=== PATIENT | male | born 1945 | race Caucasian/White ===

== ENCOUNTER 2016-08-13 17:12 | Inpatient (IN) | payer MEDICARE ==
[2016-08-13] VITALS (10 sets, daily range): BP systolic 125–155; BP diastolic 83–102; BMI 37.3
[~2016-08-13] VITALS: Ht 175.3 cm; Wt 115.0 kg
--- NOTE | ~2016-08-13 | HEMODYNAMI ---
PATIENT:LUIS ALFREDO ESCOBAR MEDICAL RECORD: [id number] : 41 LOCATION:[facility] D230 ADMISSION DATE: 08/13/16 Generatedon:08/13/201620:27 Patient name: LUIS ALFREDO ESCOBAR Patient #: [id number] SSN: : 1945 Date of study: 08/13/2016 Page: Of Hemodynamic Procedure Report Patient Data Patient Demographics Procedure consent was obtained First Name: LUIS ALFREDO Gender: Male Last Name: SHAWN : 1945 [facility] Initial: G Age: 71 year(s) Patient #: [id number] Race: Unknown Additional ID: [id number] Contact details [address]: [address] [place] [address] State: [place] City: [place] Zip code: [address] Past Medical History Allergies: No known allergies Admission Admission Data Admission Date: 08/13/2016 Admission Time: 18:52 Room #: 2306 Height (in.): 69 BSA: 2.27 (m2) Height (cm.): 175.26 BMI: 36.92 (kg/m2) Weight (lbs.): 250 Weight (kg.): 113.4 Procedure Procedure Types Cath Procedure Diagnostic Procedure [facility] w/Coronaries PCI Procedure Coronary Stent Initial Miscellaneous Procedures Moderate Sedation up to 15 minutes Procedure Description Procedure Date Procedure Date: 08/13/2016 Procedure Start Time: 20:05 Procedure End Time: 20:25 Procedure Staff Name Function Haresh Witt MD Performing Physician Benjie Quinatna RT Scrub Tim Pinto RN Nurse Christa Fuentes RT Monitor Procedure Data Cath Procedure Fluoroscopy Diagnostic fluoroscopy Total fluoroscopy Time: 3.6 time: 3.6 min min Diagnostic fluoroscopy Total fluoroscopy dose: dose: 1115 mGy 1115 mGy Contrast Material Contrast Material Type Amount (ml) Isovue 300 118 Entry Location Entry Primary Successful Side Size Upsize Upsize Entry Closure Succes sful Closure Location (Fr) 1 (Fr) 2 (Fr) Remarks Device Remarks Femoral Right 6 Fr Exoseal artery Short Estimated blood loss: 10 ml Diagnostic catheters Device Type Used For End Catheter Placement Cordis 5Fr Pigtail LV Angiography Catheter (MP) Cordis 5Fr JL 4.0 Left Coronary Catheter (MP) Angiography Cordis 5Fr 3DRC Catheter Right Coronary (MP) Angiography Procedure Complications No complications Procedure Medications Medication Administration Route Dosage Oxygen NC 2 l/min Heparin Flush Bag added to field 2 bags (1000units/500ml NS) 0.9% NaCl I.V. 100 ml/hr Fentanyl I.V. 50 mcg Versed I.V. 1 mg Lopressor I.V. 5 mg Fentanyl I.V. 50 mcg Versed I.V. 1 mg Heparin Bolus I.V. 4000 units Integrilin (Bolus I.V. 10.2 ml 2mg/ml) Dobutamine I.V. drip 5 mcg/kg/min (500mg/250ml D5W) Hemodynamics Rest BSA: 2.27 (m2) O2 Consumption: Estimated: 293.81 (ml/min) O2 Consumption indexed : Estimated:129.43 (ml/min/m) Heart Rate: 107 (bpm) Pressure Samples Time Site Value (mmHg) Purpose Heart Use Rate(bpm) 20:07 LV 120/20,25 Snapshot 96 20:08 AO 119/83(100) Snapshot 91 Snapshots Pre Cath Intra NCS Post Cath Vital Signs Time Heart Resp SPO2 etCO2 [id number] NIBP (mmHg) Rhythm Pain Sedatio n Rate (ipm) (%) (mmHg) (mmHg) Status Level (bpm) 19:59:54 108 17 96 0 0 145/105(125) NSR 0 (11) 10(A) , No pain 20:04:14 110 18 93 0 0 147/105(120) NSR 0 (11) 10(A) , No pain 20:08:32 90 17 93 0 0 129/93(114) NSR 0 (11) 9(A) , No pain 20:12:48 90 20 93 0 0 135/89(117) NSR 0 (11) 9(A) , No pain 20:17:02 93 17 95 0 0 140/92(120) NSR 0 (11) 9(A) , No pain 20:21:20 92 17 93 0 0 141/93(123) NSR 0 (11) 9(A) , No pain Medications Time Medication Route Dose Verified Delivered Reason N otes Effectiveness by by 20:00:14 Oxygen NC 2 l/min Tim Tim Per physician Blair Pinto RN RN 20:00:37 Heparin Flush added 2 bags Tim Tim used for Bag to Blair Pinto RN procedure (1000units/500ml field RN NS) 20:00:49 0.9% NaCl I.V. 100 ml/hr Tim Tim Per physician Blair Pinto RN RN 20:05:16 Fentanyl I.V. 50 mcg Tim Tim for sedation Blair Pinto RN RN 20:05:23 Versed I.V. 1 mg Tim Tim for sedation Blair Pinto RN RN 20:06:12 Lopressor I.V. 5 mg Tim Tim Per physician Blair Pinto RN RN 20:07:23 Fentanyl I.V. 50 mcg Tim Tim for sedation Blair Pinto RN RN 20:07:27 Versed I.V. 1 mg Tim Tim for sedation Blair Pinto RN RN 20:12:39 Heparin Bolus I.V. 4000 units Tim Tim for Blair Pinto RN anticoagulation RN 20:13:55 Integrilin I.V. 10.2 ml Tim Marreroy for (Bolus 2mg/ml) Blair Pinto RN antiplatelet RN therapy 20:16:15 Dobutamine I.V. 5 Tim Tim Per physician (500mg/250ml drip mcg/kg/min Blair iPnto RN D5W) heart surgeon Log Time Note 19:40:55 Tim Pinto RN sent for patient. Start room use. 19:48:56 Time tracking: Call back 19:51:52 Plan of Care:Hemodynamics will remain stable., Cardiac rhythm will remain stable., Comfort level will be maintained., Respiratory function will remain adequate., Patient/ family verbilizes understanding of procedure., Procedure tolerated without complication., Recovers from procedure without complications.. 19:52:50 Patient received from ED to CCL 1 Alert and oriented. Tansferred to table in Supine position. 19:52:51 Warm blankets applied, and abby hugger turned on for patient comfort. 19:52:51 Correct patient and procedure confirmed by team. 19::52 Signed procedure consent form obtained from patient. 19:52:53 ECG and BP/O2 sat monitors applied to patient. 19:52:54 Full Disclosure recording started 19:58:34 Vital chart was started 19:58:38 Rhythm: sinus rhythm 19:59:39 H&P Date Dictated: 08/13/2016 Emergent; H&P N/A. 19:59:40 Pre-procedure instructions explained to patient. 19:59:41 Pre-op teaching completed and patient verbalized understanding. 19:59:42 Family in waiting room. 19:59:44 Patient NPO since Midnight. 19:59:53 Patient allergic to No known allergies 19:59:56 Is the patient allergic to Iodine/contrast media? No. 20:00:14 Oxygen 2 l/min NC was administered by Tim Pinto RN; Per physician; 20:00:37 Heparin Flush Bag (1000units/500ml NS) 2 bags added to field was administered by Tim Pinto RN; used for procedure; 20:00:49 0.9% NaCl 100 ml/hr I.V. was administered by Tim Pinto RN; Per physician; 20:01:06 Is patient on blood thinner?No 20:01:12 Patient diabetic? No. 20:01:15 Previous problem with sedation/anesthesia? No ? 20:01:16 Snore? Yes 20:01:17 Sleep apnea? No 20:01:18 Deviated septum? No 20:01:18 Opens mouth fully? Yes 20:01:19 Sticks out tongue? Yes 20:01:21 Airway obstruction? No ? 20:01:23 Dentures? No ? 20:01:26 Pre procedure: right dorsailis pedis pulse 2+ Normal; easily identifiable; not easily obliterated 20:01:28 Patient pain scale 0/10 ?. 20:01:34 IV patent on arrival in left forearm with 0.9% NaCl at [facility]. 20:01:39 Lab results completed and on chart. 20:01:42 Right groin area was prepped with chlora-prep and draped in sterile fashion 20:01:43 Alarms reviewed by R. N. 20:01:44 Sharps counted by scrub and verified by R.N. 20:02:02 Use device set Femoral Dx 20:02:04 Acist Syringe opened to sterile field. 20:02:04 Bag Decanter opened to sterile field. 20:02:05 Medline Cath Pack opened to sterile field. 20:02:06 St Laureano 260cm J .035 wire opened to sterile field. 20:02:07 Acist Hand Control opened to sterile field. 20:02:08 Acist Manifold opened to sterile field. 20:02:08 Diagnostic Infinity 5Fr Multipack catheter opened to sterile field. 20:02:09 Tegaderm 4 x 4 opened to sterile field. 20:02:25 Baseline sample Acquired. 20:03:04 Final Timeout: patient, procedure, and site verified with staff and physician. All members of the team are in agreement. 20:03:06 Right groin site verified by team. 20:03:09 Physical assessment completed. ASA score P 2 - A patient with mild systemic disease as per Haresh Witt MD. 20:03:25 Sedation plan: IV Moderate Sedation Versed, Fentanyl 20:05:02 Zero performed for pressure channel P1 20:05:06 Zero performed for pressure channel P1 20:05:15 Procedure started. 20:05:16 Fentanyl 50 mcg I.V. was administered by Tim Pinto RN; for sedation; 20:05:18 Local anesthetic to right femoral artery with Lidocaine 2% by Haresh Witt MD.INITIAL ACCESS ONLY 20:05:23 Versed 1 mg I.V. was administered by Tim Pinto RN; for sedation; 20:06:12 Lopressor 5 mg I.V. was administered by Tim Pinto RN; Per physician; 20:06:13 A 6 Fr Short sheath was inserted into the Right Femoral artery 20:06:40 A Cordis 5Fr Pigtail Catheter (MP) was advanced over the wire and used for LV Angiography. 20:06:52 Merit BasixCompak Inflation Kit opened to sterile field. 20:06:52 Terumo 6Fr [place] Sheath opened to sterile field. 20:06:57 Gavin Whisper J 300cm 0.014 guide wire opened to sterile field. 20:07:23 Fentanyl 50 mcg I.V. was administered by Tim Pinto RN; for sedation; 20:07:24 LV gram done using HAYNES 20:07:26 LV hemodynamics recorded. 20:07:27 Versed 1 mg I.V. was administered by Tim Pinto RN; for sedation; 20:07:30 Injector settings: Ml/sec: 10, Volume: 20, 20:07:34 EF : 20 % 20:07:37 Catheter removed. 20:07:53 A Cordis 5Fr JL 4.0 Catheter (MP) was advanced over the wire and used for Left Coronary Angiography. 20:09:19 Catheter removed. 20:09:53 A Cordis 5Fr 3DRC Catheter (MP) was advanced over the wire and used for Right Coronary Angiography. 20:10:43 Catheter removed. 20:12:27 Patient Weight : 250 kg 20:12:29 Patient Height : 69 cm 20:12:37 Medtronic Launcher 6Fr 3DRC guide catheter opened to sterile field. 20:12:39 Heparin Bolus 4000 units I.V. was administered by Tim Pinto RN; for anticoagulation; 20:13:30 6 Fr 3DRC guide catheter was inserted over the wire 20:13:36 Whisper wire advanced. 20:13:55 Integrilin (Bolus 2mg/ml) 10.2 ml I.V. was administered by Tim Pinto RN; for antiplatelet therapy; 20:15:31 Inflation Number: 1 A Medtronic Integrity 3.5 X 22 stent was prepped and advanced across the Mid RCA. The stent was deployed at 11 STEPHANY for 0:09 (min:sec). 20:15:52 Inflation number: 2 The stent balloon was then re-inflated across the Mid RCA to 13 STEPHANY for 0:10 (min:sec). 20:16:15 Dobutamine (500mg/250ml D5W) 5 mcg/kg/min I.V. drip was administered by Tim Pinto RN; Per physician; 20:16:30 Stent catheter was removed intact over wire. 20:16:30 Wire removed. 20:16:31 Guide catheter removed. 20:16:40 Sheath removed intact; hemostasis achieved with Exoseal to the Right Femoral artery. 20:16:42 Procedure ended.(Physican Out) 20:16:53 Cordis 6Fr Exoseal opened to sterile field. 20:17:32 Fluoroscopy time 03.60 minutes. 20:17:36 Fluoroscopy dose: 1115 mGy 20:17:36 Flurop Dose total: 1115 20:17:39 Contrast amount:Isovue 300 118ml. 20:17:40 Sharps counted by scrub and verified by R.N. 20:17:42 Insertion/operative site no bleeding no hematoma. 20:17:45 Post-op/insertion site Right Femoral artery dressed using a 4 x 4 and Tegaderm. 20:17:48 Post right femoral artery:stable, clean and dry 20:17:50 Post Procedure Pulses reassessed and unchanged 20:17:53 Post-procedure physical assessment completed. ASA score P 2 - A patient with mild systemic disease as per Haresh Witt MD. 20:17:56 Post procedure rhythm: sinus rhythm 20:17:59 Estimated blood loss: 10 ml 20:18:07 Post procedure instruction explained to patient.Patient verbalizes understanding. 20:18:08 Patient needs reinforcement of post procedure teaching. 20:18:22 Procedure type changed to Cath procedure, Diagnostic procedure, LHC, LHC w/Coronaries, PCI procedure, Coronary Stent Initial, Miscellaneous Procedures, Moderate Sedation up to 15 minutes 20:18:28 Procedure Complication : No complications 20:18:30 See physician's report for complete and final results. 20:19:56 Procedure and supply charges have been captured, reviewed, submitted and are correct. 20:24:58 Vital chart was stopped 20:25:02 Report given to ICU. 20:25:06 Patient transfered to ICU with Bed. 20:25:08 Procedure ended. 20:25:08 Full Disclosure recording stopped 20:25:20 End room use (Document Last) Intervention Summary Intervention Notes Time ActionType Lesion and Equipment Action# Pressure Duration Attributes Used 20:15:31 Place stent Mid RCA Medtronic 1 11 00:09 Integrity 3.5 X 22 stent 20:15:52 Reinflate Mid RCA Medtronic 2 13 00:10 stent Integrity balloon 3.5 X 22 stent Device Usage Item Name Manufacture Quantity Catalog Hospital Part Current Minimal L ot# / Number Charge Number Stock Stock Serial# Code Acist Acist 1 08722 302288 152141 987805 20 Syringe Medical Systems Inc Bag Microtek 1 2001S 688459 17428 511819 5 M[employer]. Medline Cardinal 1 [id number] 418253 59540 206514 5 Sahale Snacks [facility] Laureano 1 308606 188129 622083 046002 30 260cm J .035 wire Acist Hand Acist 1 71776 107987 521379 268934 5 [employer] Inc Acist Acist 1 67645 922211 788402 542296 5 Mobento Systems Inc Diagnostic Cardinal 1 [id number] 251959 87696 694105 30 Infinity Health 5Fr Multipack catheter Tegaderm 4 3M 1 1626W 249966 309437 614409 5 x 4 Cordis 5Fr Cardinal 1 705661 5 Pigtail Health Catheter (MP) [facility] 1 [id number] 871251 167520 518897 15 BasixPeridrome CorporationkstwtMob Medical Inflation Kit Terumo 6Fr Terumo 1 EST227 133764 082685 083511 40 [place] Sheath Gavin Gavin 1 [id number] 374751 966992 836301 5 Whisper J Vascular 300cm 0.014 guide wire Cordis 5Fr Cardinal 1 380492 5 JL 4.0 Health Catheter (MP) Cordis 5Fr Cardinal 1 064090 5 3DRC Health Catheter (MP) Medtronic Medtronic 1 [id number] 879146 821407 950002 1 Launcher 6Fr 3DRC guide catheter Medtronic Medtronic 1 [id number] 097429 010597 1 0 [id number] Integrity 3.5 X 22 stent Cordis 6Fr Cardinal 1 EX600 708513 244870 797585 10 Re2you Signature Audit [place] Stage Time Signature Unsigned Intra-Procedure 08/13/2016 Christa 8:26:58 PM Counts RT(R) Signatures Monitor : Christa Signature : Counts RT Date : Time : [address] [place] [address]
[~2016-08-13 17:12] MED LIST: ALTACE5 MG PO; ASPIRIN325 MG PO; COREG 3.1253.125 MG GT; COREG 3.1253.125 MG PO; IPRAT-ALBUT 0.5-3 ML PP; K-TAB10 MEQ PO; LASIX20 MG PO; LEVAQUIN750 MG PO; LIPITOR10 MG PO; MORPHINE; MUCINEX1200 MG/BO PO; MULTI-DAY VITAM1 TAB PO; MYLANTA LIQUID355 ML PO; NEURONTIN 300300 MG PO; NORCO 10/325 TA1 TA1 PO; PLAVIX75 MG PO; PRILOSEC20 MG PO; PROTONIX40 MG PO; ST JOSEPH ASPIR81 MG PO; ST. JOHN'S WOR300 MG PO; TYLENOL 8 HOUR650 MG PO; VITAMIN B COMPL1 TA1 PO; VITAMIN B-121000 MCG PO; VITAMIN C1000 MG PO
[2016-08-13 17:45] LABS: BASOPHILS 0.1 % (0-2); EOSINOPHILS 0 % (0-7); HEMATOCRIT 45.9 % (42.0-54.0); HEMOGLOBIN 15.7 g/dL (13.5-17.5); IMMATURE GRANULOCYTES 0.2 % (0-5); MCH 31.5 pg (26.0-34.0); MCHC 34.2 g/dL (31.0-37.0); MEAN PLATELET VOLUME 10.1 fL (7.4-10.4); MONOCYTES 8.5 % (2-11); NEUTROPHILS 76.2 % (40-80); PLATELET COUNT 243 10x3/uL (130-400); RBC 4.99 10x6/uL (4.20-6.10); RDW 12.9 % (11.5-14.5); WBC 13.3 10x3/uL (4.8-10.8)
[2016-08-13 18:01] LABS: ANION GAP 16.3 mmol/L (8-16); BILIRUBIN - TOTAL 0.71 mg/dL (0.2-1.3); CALCIUM 9.9 mg/dL (8.5-10.1); CARBON DIOXIDE 24.2 mmol/L (21.0-32.0); CREATININE - SERUM 1.2 mg/dL (0.6-1.3); POTASSIUM - SERUM 3.5 mmol/L (3.5-5.1); PROTEIN - SERUM 8.7 g/dL (6.4-8.2)
[2016-08-13 18:18] LABS: TROPONIN-I 3.14 ng/mL (0.000-0.060)
--- NOTE | 2016-08-13 20:50 | NUR ---
2049: Pt arrived from cardiac label maker via bed and placed in room 2306 x4 staff. All monitors established and alarms on.
--- NOTE | 2016-08-13 20:55 | NUR ---
2054: Pt resting flat in bed with eyes open. LOCx3 alert and oriented. Pt has no pain, but c/o nausea. No vomitting at this time. Pt denies tingling, numbness. Pt breathing 022LNC regular and even at this time. Pt states he was SOB earlier. MMP and no cyanosis noted. Lungs clear bilat with decreased bases with auscultation. S1S2 regular ST on CM. PPPX4=bilat. Left arm PIV with Dobutmaine and NS infusing. Right groin cdi with no s/s of hematoma seen. ABD soft NT BS x4 active. Pt request urinal frequently. SR up x2, Call light in reach. SCDs not placed at this time to assess PPP. Right Femoral Exoseal per Stem Lead Former.
--- NOTE | 2016-08-13 21:00 | NUR ---
2100: Pt at bedside. Update provided.
--- NOTE | 2016-08-13 22:00 | NUR ---
2200: Pt with frequent urination. Pt urinates approx 100cc with each void of clear straw colored urine. Assisted pt with urinal each time.
--- NOTE | 2016-08-13 23:00 | NUR ---
2300: Pt remains ST 100's on CM. Pt with no c/o chest pain, but states nausea and SOB continue. Pt remains on 022LNC with SPO2 97%. HOB at 30 degrees at this time.
[2016-08-14] VITALS (30 sets, daily range): BP systolic 69–147; BP diastolic 39–98; Ht 175.3 cm; Wt 115.0 kg
--- NOTE | 2016-08-14 00:15 | NUR ---
0000: Pt states; "I'm dying!" "You have let me just suffer." Pt denies anxiety or pain and states; "My breathing is worse than ever." Pt requested pain medicine, a breathing treatment, and water. Provided water. Morphine and Zofran admin at this time. No orders for Albuterol. Attempted to educate pt regarding ALbuterol, Cardiac Output, HR, but pt does not understand education. Pt ST 113 bpm at this time. Pt requested FIO2 be turned up to 4L. Pt SPO1 99% at this time. Pt FIO2 increased as per request. Explained 02 sat to pt who states; "People tell me that all the time, but I know I can't breath." All attempts to console patient unsuccessful. Pt repositioned as per request on Left side. Call light and Water at bedside and reachable. Pt cell phone at bedside as per request.
--- NOTE | 2016-08-14 01:45 | NUR ---
0145: Pt resting with eyes closed at this time. Pt remains SR on CM. No change in IVF/UOP. Pt remains on 024LNC with RR24x with SPO2 99%. Right groin with no s/s of hematoma noted.
--- NOTE | 2016-08-14 02:56 | NUR ---
0256: Pt resting with eyes closed. Open to verbal. Pt states he is still terrible and can't breathe. Pt remains on 024LNC with RR16x with SPO2 97%. No changes seen on CM and pt remains ST 110's. Provided water and assisted with urination. Pt remains on Dobutamine gtt as per orders.
--- NOTE | 2016-08-14 05:30 | NUR ---
0530: Pt resting with eyes closed upon entry to room pt opens eyes and states; "I am dying." Reassured pt. Pt states; "I can't beleive I just have to suffer like this." Asked pt to explain symptoms. Pt again states he can not breathe. Pt remains on 024LNC with SPO2 98% and RR18x, MMP and no cyanosis noted. Lungs unchanged from previous assessments. Assisted pt with urination. Pt urinated 200cc of clear yellow UOP. Pt remains ST 110's on CM. Right groin unchanged.
--- NOTE | 2016-08-14 06:15 | NUR ---
0615: at bedside. Update provided. Verbalized understanding.
--- NOTE | 2016-08-14 07:00 | NUR ---
PT ALERT AND ORIENTED, RESPIRATIONS EVEN AND UNLABORED O2 3L NC DENIES SOB, PIV TO LEFT ARM NS INFUSING, REPOSITIONED, BREAKFAST OFFERED, REFUSING AT THIS TIME, DENIES ALL NEEDS CALL LIGHT WITHIN REACH VSS WILL CONTINUE TO MONITOR
--- NOTE | 2016-08-14 09:00 | NUR ---
PT ALERT, VSS, DENIES ALL NEEDS, REPOSITONED WILL CONTINUE TO MONITOR
--- NOTE | 2016-08-14 11:00 | NUR ---
PT ALERT, RESPIRATIONS EVEN AND UNLABORED O2 3L NC, VSS, DENIES ALL NEEDS, WILL CONTIUE TO MONITOR
--- NOTE | 2016-08-14 11:13 | NUR ---
* Is the patient Alert and Oriented? Yes 0 * How many steps to enter\exit or inside your home? 0 0 * PCP Dr. Tee 0 * Pharmacy [facility] on [address] * Preadmission Environment Home with Family 0 * Equipment Nebulizer Oxygen 0 * List name and contact numbers for known caregivers / representatives who currently or will assist patient after discharge: Spouse - Shikha [phone] 0 * Additional services required to return to the preadmission environment? No 0 * Can the patient safely return to the preadmission environment? Yes 0 * Has this patient been hospitalized within the prior 30 days at any hospital? No 08/14/2016 11:13 DCP: Discharge Planning Patient Name: LUIS ALFREDO ESCOBAR Admission Status: ER Accout number: [id number] Admission Date: 08-13-2016 : 1945 Admission Diagnosis:UNSTABLE ANGINA Attending: PILI Current LOS: 1 Planned Disposition: Home Primary Insurance: MEDICARE A & B Discharge Planning Comments: CM met with patient to assess dc plans/needs. Patient states he lives with his , Shikha. He reports he is independent with all ADL's & IADL's. Denies having home health services or requiring assistive devices for assistance with mobility. He has home O2 @ 2L & a nebulizer. At dc, he will return home with his . CM will follow & assist as needed. Supervisor Asphalt Paving: Elizabeth Weber
--- NOTE | 2016-08-14 13:00 | NUR ---
PT ALERT AND ORIENTED, RESPIRATIONS EVEN AND UNLABORED, DENIES SOB, REPOSITIONS SELF WITH ENCOURAGEMENT, DENIES ALL NEEDS, CALL LIGHT WITHIN REACH, VSS, WILL CONTINUE TO MONITOR
--- NOTE | 2016-08-14 15:00 | NUR ---
PT ALERT AND ORIENTED, DENIES NEEDS, VSS, REPOSITIONS SELF, CALL LIGHT WITHIN REACH, WILL CONTINUE TO MONITOR
--- NOTE | 2016-08-14 17:00 | NUR ---
PT ALERT AND ORIENTED, DENIES SOB, RESPRIATIONS EVEN ANDUNLABORED, DENIES ALL NEEDS, REPOSITIONS SELF, WILL CONTINUE TO MONITOR
[2016-08-14] MEDS ORDERED: NEURONTIN 300300 MG PO (17:04)
--- NOTE | 2016-08-14 19:00 | NUR ---
PT AOX4, NO C/O PAIN AT THIS TIME. COOPERARTIVE. VSS, PERIPHERAL PULSES PRESENT. LUNG SOUNDS CLEAR, NC ON @ 2L, RESPIRATIONS UNLABORED. BOWEL SOUNDS ACTIVE IN ALL QUADS. RT GROIN SOFT WITH DSG CDI. PT REPOSITIONS SELF INDEPENDENTLY. DENIES FURTHER NEEDS AT THIS TIME. CALL LIGHT AND BEDSIDE TABLE WITHIN PT REACH. CPOC.
--- NOTE | 2016-08-14 21:20 | NUR ---
REC'D CALLBACK FROM BOBBI REGARDING HYPOTENSION, NEW ORDERS REC'D.
[2016-08-15] VITALS (21 sets, daily range): BP systolic 83–109; BP diastolic 42–71
--- NOTE | 2016-08-15 01:00 | NUR ---
PT RESTING QUIETLY WITH UNLABORED RESPIRATIONS. NO C/O PAIN, NO S/S OF DISTRESS AT THIS TIME. ALLOWED TO CONTINUE SLEEPING UNDISTUBED AT THIS TIME. CALL LIGHT AND BEDSIDE TABLE WITHIN PT REACH. ROOM VISIBLE FROM NURSES STATION. CPOC.
--- NOTE | 2016-08-15 03:00 | NUR ---
REASSESSMENT COMPLETE, SEE FLOWSHEET FOR ALL FINDINGS. PT RESTING QUIETLY WITH NO S/S OF DISTRESS. HYPOTENSIVE ON MONITOR, ASYMPTOMATIC. DENIES DIZZINESS, LIGHTHEADEDNESS, AND NAUSEA.HR 90'S. PT REPOSITIONED SELF INDEPENDENTLY. FRESH WATER TO BEDSIDE. DENIES FURTHER NEEDS AT THIS TIME. CALL LIGHT AND BEDSIDE TABLE WITHIN PT REACH. CPOC.
--- NOTE | 2016-08-15 17:45 | NUR ---
PT ARRIVED TO UNIT WITH AT SIDE. RR NONLABORED WITH NC @2L IN PLACE. PT IS A&O AND STATES HE IS FEELING PRETTY GOOD. VSS. PT HAS A L.THUMB AND L.AC PIV SL WITH SWAB CAPS IN USE AND DRSG CDI. PT ALSO HAS A L.HAND PIV WITH NS @75ML/HR INFUSING ALONG WITH A DOBUTAMINE DRIP @17ML/HR. PT DENIES ANY CURRENT PAIN OR NEEDS. CL IN REACH, BED IN LOWEST, SIDE RAILS X2. WILL CTM.
--- NOTE | 2016-08-15 19:33 | NUR ---
INITIAL ROUNDS COMPLETED. PT DENIES ANY DISCOMFORT. AT BEDSIDE. SR UP X2, CALL LIGHT WITHIN REACH.
--- NOTE | 2016-08-15 22:07 | NUR ---
ASSESSMENT COMPLETED AT 2000 HRS. VSS. SR PER CM HR 68. IV TO LFA WITH NS AT 75CC/HR AND DOBUTREX AT 5MCQ/KG/MIN (17CC/HR). IV PATENT. O2 2LNC. LUNGS DIMINISHED IN BASES BILAT. ALERT AND ORIENTED TO PERSON, PLACE AND TIME. IV TO L THUMB AND LAC SL. DRESSING TO R GROIN CLEAN, DRY AND INTACT. PALPABLE PERIPHERAL PULSES. PM MEDS GIVEN. PT CURRETNLY WATCHNG TV. AT BEDSIDE. SR UP X2, CALL LIGHT WITHIN REACH.
[2016-08-16] VITALS (7 sets, daily range): BP systolic 93–129; BP diastolic 38–58
--- NOTE | 2016-08-16 00:11 | NUR ---
PT AWAKE; DENIES ANY DISCOMFORT. WILL CONTINUE TO MONITOR.
--- NOTE | 2016-08-16 03:11 | NUR ---
PT RESTING WITH EYES CLOSED. RESP EVEN AND REGULAR. SR UP X2, CALL LIGHT WITHIN REACH.
--- NOTE | 2016-08-16 06:47 | NUR ---
VSS THROUGHOUT NIGHT. PT DENIED ANY DISCOMFORT. NEEDS MET; WILL CONTINUE TO MONITOR.
--- NOTE | 2016-08-16 08:34 | NUR ---
ASSESSMENT DONE. DENIES NEEDS,
[2016-08-16 09:00] LABS: ANION GAP 10.6 mmol/L (8-16); CALCIUM 8.2 mg/dL (8.5-10.1); CREATININE - SERUM 1.6 mg/dL (0.6-1.3)
[2016-08-16 09:02] LABS: POTASSIUM - SERUM 2.6 mmol/L (3.5-5.1)
--- NOTE | 2016-08-16 10:52 | NUR ---
RESP UL ON . IV PATENT. AT BS. WIIL CONT. PLAN OF CARE.
--- NOTE | 2016-08-16 17:19 | NUR ---
WITHOUT CHANGES OR DISTRESS NOTED AT THIS TIME. DENIES NEEDS.
--- NOTE | 2016-08-16 23:37 | NUR ---
INITIAL ROUNDS COMPLETED AT 1920 HRS. PT DENIED ANY DISCOMFORT. ASSESSMENT COMPLETED AT 2020 HRS. VSS. SR PER CM HR 65. IV TO LAC AND L THIMB SL. IV TO LFA WITH NS AT 75CC/HR AND DOBUTRX DRIP AT 3MCQ/KG/MIN ( 10.7CC/HR). O2 2LNC. LUNGS DIMINISHED IN BASES BILAT. TRACE PEDAL EDEMA. K+ 3.3. PT REFUSES LIQUID AND IV K+ AT THAT TIME. PM MEDS ROBERT. PT CURRENTLY WATCHING TV. AT BEDSIDE. WILL CONTINUE TO MONITOR. SR UP X2, CALL LIGHT WITHIN REACH. SCD'S PLACED BACK ON AT THIS TIME.
--- NOTE | 2016-08-17 02:09 | NUR ---
PT AWAKE; DENIES ANY DISCOMFORT. AT BEDSIDE AND SCD'S ON.
[2016-08-17 04:00] VITALS: BP 113/47
--- NOTE | 2016-08-17 04:34 | NUR ---
PT AWAKE; DENIES ANY DISCOMFORT. AT BEDSIDE. WILL CONTINUE TO MONITOR.
[2016-08-17 05:52] LABS: ANION GAP 8.8 mmol/L (8-16); CALCIUM 8.1 mg/dL (8.5-10.1); CARBON DIOXIDE 34.3 mmol/L (21.0-32.0); CREATININE - SERUM 1.3 mg/dL (0.6-1.3); POTASSIUM - SERUM 3.1 mmol/L (3.5-5.1)
[2016-08-17 08:57] VITALS: BP 128/59
--- NOTE | 2016-08-17 10:53 | NUR ---
ASSESSMENT COMPLETED. DENIES ANY NEEDS.TELEMERTY SHOWS SB AT 56. IV TO LEFT ARM WITH NS AT 75 AND DOBUTAMINE AT 10.7. EDEMA TO LEGS.LEFT AC SL. WILL MONITOR
--- NOTE | 2016-08-17 11:05 | NUR ---
AMBULATEING IN [address]. GAIT STEADY. WILL MONITOR
--- NOTE | 2016-08-17 11:10 | NUR ---
DOBUTAMINE GTT GOING AT 10.5. MONITOR SHOWS SR AT 73. UP WALKING HALLS BUT STILL CO SOB. O2 ON 3L. WILL CONTINUE TO MONITOR.
[2016-08-17 11:58] VITALS: BP 111/67
--- NOTE | 2016-08-17 13:50 | NUR ---
Nutrition follow-up: Diet: Low sodium PO intake 100% of most meals labs reviewed Wt: 253# RDN following.
--- NOTE | 2016-08-17 15:02 | OP ---
PATIENT NAME: LUIS ALFREDO ESCOBAR MEDICAL RECORD: [id number] :41 LOCATION:D.M2 D.2 ADMISSION DATE:08/13/16 SURGEON: MARLENE ELAINE MD DATE OF OPERATION: 08/13/2016 PROCEDURES: 1. PTCA stent RCA. 2. Left heart catheterization. 3. Selective coronary angiography. 4. Left ventriculogram. PROCEDURE IN DETAIL: After informed consent was obtained and after detailed explanation of risks, benefits as well as alternative therapies. The patient elected to proceed with angiogram and angioplasty. The right femoral area was prepped and draped in normal sterile fashion. The right femoral artery was cannulated via modified Seldinger technique with placement of 6-Arabic sheath. All catheters exchanged through this sheath. FINDINGS: The left ventriculogram was performed in the standard 30-degree HAYNES view reveals global hypokinesis throughout all segments. Overall ejection fraction is 20%. SELECTIVE CORONARY ANGIOGRAPHY: 1. Left main showed no significant angiographic disease. 2. Left anterior descending has mild irregularities, but no flow-limiting stenosis. Previously placed stents in the LAD and LAD diagonal are widely patent. 3. Left circumflex has moderate irregularities, but no flow-limiting stenosis. 4. The right coronary has previously placed stent proximally. This is patent; however, there is a new 70+ percent stenosis in the mid vessel. PTCA STENT OF THE RIGHT CORONARY: The stent used is a 3.5 x 22 mm Integrity. Result was 0% residual stenosis. OVERALL IMPRESSION: Successful percutaneous transluminal coronary angioplasty stent of the right coronary artery going from 70% initial stenosis to 0% residual. TRANSINT:[id number] Voice Confirmation ID: [id number] DOCUMENT ID: [id number] MARLENE ELAINE MD at 1502 CC: [id number] DICTATION DATE: 08/13/162021 POLYMERIZATION SUPERVISOR: 08/14/16 0153 ADM IN [facility] [address] [place] [address]
--- NOTE | 2016-08-17 15:02 | HP ---
PATIENT: LUIS ALFREDO ESCOBAR MEDICAL RECORD: [id number] ACCOUNT: [id number] LOCATION:[address] : 43 ADMISSION DATE: 08/13/16 HISTORY AND PHYSICAL EXAMINATION DATE OF SERVICE: 08/13/2016 DIAGNOSES: 1. Unstable angina. 2. Coronary artery disease. 3. Previous percutaneous transluminal coronary angioplasty stent. 4. Hypertension. 5. Cardiomyopathy. 6. Congestive heart failure. 7. Shortness of breath, dyspnea on exertion. 8. Hyperlipidemia. HISTORY OF PRESENT ILLNESS: This is a gentleman well known to us, previous PTCA stent in 2013, who presents with increasing angina as well as increasing shortness of breath and heart failure symptomatology. He has a known cardiomyopathy, ejection fraction in the 20-25% range. His has been holding his carvedilol secondary to low blood pressure. When he presented, he was initially short of breath with angina. He rapidly deteriorated to respiratory distress. Heart rate went up to the 120s with ST-T changes in the inferior leads with the tachycardia. He received IV Lopressor, 80 mg of Lasix, started having a diuresis, and became more stable from a respiratory standpoint. He has continued to have anginal symptomatology. REVIEW OF SYSTEMS: The patient reports easy bruising but reports no swollen glands. The patient reports no fever, no night sweats, no significant weight gain, no significant weight loss. No significant exercise tolerance. The patient reports no dry eyes, no irritation, no vision change. Patient reports no difficulty hearing and no ear pain. Patient reports no frequent nose bleeds or nose and sinus problems. Patient reports on arm pain on exertion. No shortness of breath while lying down. No history of heart murmur. Patient reports no cough, no wheezing or coughing up blood. Patient reports no abdominal pain, no vomiting. Normal appetite. No diarrhea and not vomiting blood. No nausea and no constipation. Patient reports no incontinence. No difficulty urinating. No hematuria. No increased frequency. Patient reports no muscle aches. No weakness, no arthralgias, no back pain. No swelling of the extremities. Patient reports no abnormal mole, no jaundice, no rashes. Reports no loss of consciousness. No weakness and no numbness. No seizures, dizziness, or headaches. The patient reports no depression, no sleep disturbance, feeling safe in a relationship and no alcohol abuse. Patient reports on fatigue. Reports no runny nose or sinus pressure. No itching, no hives, and no frequent sneezing. PHYSICAL EXAMINATION: GENERAL APPEARANCE: Well-nourished, well-developed, appears stated age. Level of distress, comfortable. PSYCHIATRIC: Mental status, alert, normal affect. Orientation, oriented to time, place and person. EYES: Lids and conjunctiva, noninjected. No discharge, no pallor. ENT: Lips, teeth, gums, normal dentition. Oropharynx, no cyanosis, no pallor. NECK: Carotid arteries, bilateral normal upstroke, no bruits, no thrills. HISTORY AND PHYSICAL [id number] LUIS ALFREDO ESCOBAR JUGULAR VEINS: No jugular venous pressure or distention. CERVICAL LYMPH NODES: Nontender, nonenlarged. THYROID: Not enlarged. Nontender. No nodules. LUNGS: Respiratory effort, unlabored. CHEST: Normal curvature. No thoracic deformity. No chest wall tenderness. Percussion, resonant. Auscultation, clear. No wheezes, no rales, no rhonchi. CARDIOVASCULAR: Precordial exam, nondisplaced. No heaves or pericardial thrills. Rate and rhythm, regular. Heart sounds, normal S1, normal S2. No S3, no gallop, no rub. Systolic murmur, not heard. Diastolic murmur, not heard. EXTREMITIES: No cyanosis, no edema. Peripheral pulses, full and equal in all extremities, except as noted. No bruits appreciated. ABDOMEN: Soft, nondistended. Normal aorta. No bruit. Nontender. No masses. Liver, nontender, no hepatomegaly. Spleen, nontender, no splenomegaly. MUSCULOSKELETAL: No joint tenderness. No joint swelling. No erythema. NEUROLOGICAL: Normal gait, normal strength, normal tone. SKIN: Warm and dry. OVERALL IMPRESSION: Unstable angina, shortness of breath, congestive heart failure, chronic systolic dysfunction, pulmonary edema. We will proceed with coronary angiography. Further care depends upon findings of the angiography. TRANSINT:[id number] Voice Confirmation ID: [id number] DOCUMENT ID: [id number] MARLENE ELAINE MD at 1502 CC: [id number] DICTATION DATE: 08/13/162019 DEALER CARD ROOM: 08/13/16 2307 ADM IN [facility] [address] [place] [address]
[2016-08-17 16:13] VITALS: BP 102/44
--- NOTE | 2016-08-17 19:00 | NUR ---
INITIAL ROUNDS MADE. PT SITTING UP IN BED WITH FAMILY IN ROOM. DENIES NEEDS OR C/O AT THIS TIME. CALL LIGHT IN REACH. WILL CONT TO MONITOR.
[2016-08-17 21:25] VITALS: BP 113/55
--- NOTE | 2016-08-18 00:37 | NUR ---
DIESEL ENGINE ERECTOR AT BEDSIDE FOR VS. NEEDS ADDRESSED AT THIS TIME. CALL LIGHT IN REACH. WILL CONT TO MONITOR.
[2016-08-18 01:00] VITALS: BP 113/68
--- NOTE | 2016-08-18 06:28 | NUR ---
SITTING UP ON SIDE OF BED WITH FAMILY IN ROOM. WATCHING TV, NO NEEDS OR C/O VOICED AT THIS TIME.
--- NOTE | 2016-08-18 07:15 | NUR ---
PT AAOX4 RESP UNLABORED DENIES ANY NEEDS OR DISCOMFORT AT THIS TIME
--- NOTE | 2016-08-18 07:45 | NUR ---
ASSESSMENT COMPLETED. TELEMERTY SHOW SR. O2 AT 2 LM PER NC. SCDS ON. DENIES ANY NEEDS. CALL LIGHT IN REACH. SR UP. FAMILY AT BEDSIDE. WILL MONITOR
[2016-08-18 07:54] VITALS: BP 109/58
[2016-08-18] MEDS ORDERED: LASIX40 MG PO ×2 (10:51→10:53)
[2016-08-18] MEDS ORDERED: POTASSIUM CHLO10 ME1 PO (10:51)
[2016-08-18] MEDS ORDERED: PLAVIX75 MG PO (10:52)
[2016-08-18] MEDS ORDERED: COREG6.25 MG PO (10:52)
--- NOTE | 2016-08-18 10:55 | NUR ---
LASIX 40 MG #60 1 TAB BID KCL (POTASSIUM CHLORIDE) 10 MEQ #30 1 TAB DAILY COREG 6.25 MG #60 1 TAB BID PLAVIX 75 MG #30 1 TAB DAILY ALL OF THESE MEDS HAVE 6 REFILLS AND CALLED TO [facility] PER PATIENT REQUEST. I TALKED TO BHARATH PHARMACIST.
[2016-08-18 11:50] VITALS: BP 111/59
--- NOTE | 2016-08-18 11:56 | NUR ---
Patient Name: LUIS ALFREDO ESCOBAR Encounter No: [id number] : 1945 Primary Insurance: MEDICARE A & B Anticipated DC Date: 08-18-2016 Planned Disposition: Home DCP follow-up note: CM MET WITH PT AND SPOUSE IN ROOM TO DISCUSS DISCHARGE NEEDS AND PLANNING. CM DISCUSSED AVAILABILITY OF HOME HEALTH, REHAB SERVICES AND MEDICAL EQUIPMENT. PT DENIES DISCHARGE NEEDS. SPOUSE TO TRANSPORT HOME AT DISCHARGE. IMPORTANT MESSAGE FROM MEDICARE PROVIDED AND EXPLAINED. Constantine Doan, CASE MANAGEMENT
--- NOTE | 2016-08-18 14:22 | NUR ---
PT DISCHARGED. IVS DCD WITH TIP INTACT. INSTRUCTION GIVEN TO PT AND . TO PRIVATE CAR PER WHEELCHAIR
== END 2016-08-18 14:24 | disposition home or self-care (01) | DRG 248 ==
LOC: D.ER 17:12 → D.ICU 18:52 → D.M2 18:58 → OBSVTIME 18:58 → D.ER 18:58 → D.ICU 23:39 → D.M2 08-15 18:02
PROVIDERS: Emergency Medicine; Family Medicine; Internal Medicine Cardiovascular Disease; ADMIT Internal Medicine Interventional Cardiology
PROC: B2111ZZ Fluoroscopy of Multiple Coronary Arteries using Low Osmolar Contrast (ICD-10-PCS; 2016-08-13)
PROC: B2151ZZ Fluoroscopy of Left Heart using Low Osmolar Contrast (ICD-10-PCS; 2016-08-13)
PROC: 02703DZ Dilation of Coronary Artery, One Artery with Intraluminal Device, Percutaneous Approach (ICD-10-PCS; principal; 2016-08-13 20:00)
PROC: 4A023N7 Measurement of Cardiac Sampling and Pressure, Left Heart, Percutaneous Approach (ICD-10-PCS; 2016-08-13 20:00)
DX: I25.110 Atherosclerotic heart disease of native coronary artery with unstable angina pectoris (principal); I50.23 Acute on chronic systolic (congestive) heart failure; Z95.5 Presence of coronary angioplasty implant and graft; I11.0 Hypertensive heart disease with heart failure; I42.9 Cardiomyopathy, unspecified; E78.5 Hyperlipidemia, unspecified

== ENCOUNTER 2017-06-17 18:48 | Emergency (ER) | payer MEDICARE ==
[2016-08-14 10:31] VITALS: BMI 37.2
[~2017-06-17 18:48] MED LIST changes: +COREG6.25 MG PO; +LASIX40 MG PO; +POTASSIUM CHLO10 ME1 PO
== END 2017-06-18 01:08 | disposition home or self-care (01) ==
LOC: D.ER 18:48
DX: T14.8XXA Other injury of unspecified body region, initial encounter (principal); W54.0XXA Bitten by dog, initial encounter; Y93.89 Activity, other specified; Y92.89 Other specified places as the place of occurrence of the external cause; S61.512A Laceration without foreign body of left wrist, initial encounter; S51.012A Laceration without foreign body of left elbow, initial encounter; S11.91XA Laceration without foreign body of unspecified part of neck, initial encounter; S01.01XA Laceration without foreign body of scalp, initial encounter

== ENCOUNTER 2020-06-16 10:03 | Inpatient (IN) | payer MEDICARE ==
[2020-06-16] VITALS (7 sets, daily range): BP systolic 134–168; BP diastolic 68–80; BMI 37.2
[~2020-06-16] VITALS: Ht 175.3 cm; Wt 112.5 kg
--- NOTE | ~2020-06-16 | HEMODYNAMI ---
PATIENT:LUIS ALFREDO ESCOBAR MEDICAL RECORD: [id number] : 41 LOCATION:[address] ADMISSION DATE: 06/17/20 Generatedon:115:33 Patient name: LUIS ALFREDO ESCOBAR Patient #: [id number] SSN: : 1945 Date of study: 06/18/2020 Page: Of Hemodynamic Procedure Report Patient Data Patient Demographics Procedure consent was obtained First Name: LUIS ALFREDO Gender: Male Last Name: SHAWN : 1945 Middle Initial: G Age: 74 year(s) Patient #: [id number] Race: Unknown Additional ID: [id number] Contact details [address]: [address] [place] [address] State: [place] City: [place] Zip code: [address] Past Medical History History of disease Date Diagnosis Comments CAD Allergies Allergen Reaction Date Comments Reported Other allergy 03/29/2019 AZITHROMYCIN Other allergy 06/18/2020 AZITHROMYCIN Admission Admission Data Admission Date: 06/17/2020 Admission Time: 11:38 Arrival Date: 06/17/2020 Arrival Time: 0:00 Room #: D.2121 Height (in.): 68.9 BSA: 2.27 (m2) Height (cm.): 175 BMI: 37.22 (kg/m2) Weight (lbs.): 251.33 Weight (kg.): 114 Lab Results Lab Result Date: 06/18/2020 Lab Result Time: 0:00 Biochemistry Name Units Result Min Max BUN mg/dl 26 --(----)-* 7 18 Creatinine mg/dl 1.4 --(----)*- 0.6 1.3 eGFR ml/min 52 *-(----)-- 90 120 NONAFRICAN CBC Name Units Result Min Max Hematocrit % 40.9 -*(----)-- 42 54 Hemoglobin g/dl 13.5 --(*---)-- 13.5 17.5 Procedure Procedure Types Cath Procedure Diagnostic Procedure [facility] w/Coronaries FFR/IVUS FFR Initial Sedation Charges Moderate Sedation 10-24 minutes PCI Procedure Hemochron ACT Test Procedure Description Procedure Date Procedure Date: 06/18/2020 Procedure Start Time: 15:10 Procedure End Time: 15:31 Procedure Staff Name Function Drake Swanson MD Performing Physician Adelina Bell RT Monitor Carey Neil RT Scrub Ilan Altamirano RN Nurse Procedure Data Cath Procedure Fluoroscopy Diagnostic fluoroscopy Total fluoroscopy Time: 2.2 time: 2.2 min min Diagnostic fluoroscopy Total fluoroscopy dose: 581 dose: 581 mGy mGy Contrast Material Contrast Material Type Amount (ml) Isovue 300 60 Entry Location Entry Primary Successful Side Size Upsize Upsize Entry Closure Succes sful Closure Location (Fr) 1 (Fr) 2 (Fr) Remarks Device Remarks Femoral Right 5 Fr Exoseal artery Estimated blood loss: 5 ml Diagnostic catheters Device Type Used For End Catheter Placement MULTIPACK JL 4.0 5Fr Procedure catheter MULTIPACK 3DRC 5Fr Procedure catheter MULTIPACK JL 4.0 5Fr Procedure catheter Procedure Complications No complications Procedure Medications Medication Administration Route Dosage 0.9% NaCl I.V. 100 ml/hr Oxygen etCO2 Nasal cannula 2 l/min Heparin Flush Bag added to field 2 bags (1000units/500ml NS) Lidocaine 2% added to field 20 Versed I.V. 2 mg Fentanyl I.V. 100 mcg Versed I.V. 2 mg Fentanyl I.V. 100 mcg Heparin Bolus I.V. 2500 units Hemodynamics Rest BSA: 2.27 (m2) HGB: 13.5 (g/dl) O2 Consumption: Estimated: 251.73 (ml/min) O2 Co nsumption indexed: Estimated:110.89 (ml/min/m) Heart Rate: 60 (bpm) Pressure Samples Time Site Value (mmHg) Purpose Heart Use Rate(bpm) 15:20 LV 121/1,4 Snapshot 66 Snapshots Pre Cath Intra NCS Post Cath Vital Signs Time Heart Resp SPO2 etCO2 NIBP (mmHg) Rhythm Pain Sedation Rate (ipm) (%) (mmHg) Status Level (bpm) 14:47:01 64 15 97 0 179/97(160) NSR 0 (11) 10(A) , No pain 14:51:19 70 22 94 0 152/89(120) NSR 0 (11) 10(A) , No pain 14:55:37 65 21 90 0 140/79(110) NSR 0 (11) 10(A) , No pain 14:59:51 65 23 92 0 144/79(110) NSR 0 (11) 10(A) , No pain 15:04:07 63 22 94 0 141/78(119) NSR 0 (11) 10(A) , No pain 15:08:21 63 19 96 0 132/79(112) NSR 0 (11) 10(A) , No pain 15:12:35 71 11 94 0 123/77(92) NSR 0 (11) 10(A) , No pain 15:16:43 67 15 93 0 135/77(116) NSR 0 (11) 10(A) , No pain 15:20:55 65 14 92 0 140/78(115) NSR 0 (11) 10(A) , No pain 15:25:49 65 16 94 0 131/79(106) NSR 0 (11) 10(A) , No pain 15:30:01 68 29 95 0 127/77(109) NSR 0 (11) 10(A) , No pain Medications Time Medication Route Dose Verified Delivered Reason Notes Effectiveness by by 14:47:20 0.9% NaCl I.V. 100 Ilan Ilan Per physician ml/hr Evelia Altamirano RN RN 14:47:29 Oxygen etCO2 2 Ilan Ilan for low 02 sats Nasal l/min Evelia Altamirano cannula RN RN 14:47:40 Heparin Flush added 2 Ilan Ilan used for Bag to bags Evelia Altamirano procedure (1000units/500ml field FIGUEROA RN NS) 14:47:53 Lidocaine 2% added 20ml Ilan Ilan for local to vial Evelia Altamirano anesthetic field FIGUEROA RN 15:08:38 Versed I.V. 2 mg Ilan Ilan for sedation Evelia Altamirano RN RN 15:08:47 Fentanyl I.V. 100 Ilan Ilan for sedation mcg Evelia Altamirano RN RN 15:12:31 Versed I.V. 2 mg Ilan Ilan for sedation Evelia Altamirano RN RN 15:14:36 Fentanyl I.V. 100 Ilan Ilan for sedation mcg Evelia Altamirano RN RN 15:23:23 Heparin Bolus I.V. 2,500 Ilan Ilan for units Evelia Altamirano anticoagulation RN skein drier Log Time Note 14:24:26 Informed consent obtained and on chart 14:24:41 Ilan Altamirano RN sent for patient. Start room use. 14:32:33 Procedure Status Urgent Heart Cath (IP). 14:32:34 Time tracking: Regular hours (M-F 7:00 - 5:00) 14:32:36 Plan of Care:Hemodynamics will remain stable., Cardiac rhythm will remain stable., Comfort level will be maintained., Respiratory function will remain adequate., Patient/ family verbilizes understanding of procedure., Procedure tolerated without complication., Recovers from procedure without complications.. 14:35:33 H&P Date Dictated: 06/18/2020 ER History on chart.. 14:36:21 Patient allergic to Other allergyAZITHROMYCIN 14:37:05 Patient received from Med II to CCL 2 Alert and oriented. Tansferred to table in Supine position. 14:37:06 Warm blankets applied, and abby hugger turned on for patient comfort. 14:37:06 Correct patient and procedure confirmed by team. 14:37:07 ECG and BP/O2 sat monitors applied to patient. 14:45:53 Vital chart was started 14:45:55 Baseline sample Acquired. 14:45:59 Rhythm: sinus bradycardia 14:45:59 Full Disclosure recording started 14:46:00 Pre-procedure instructions explained to patient. 14:46:00 Pre-op teaching completed and patient verbalized understanding. 14:46:03 Family in patients room. 14:46:06 Patient NPO since Midnight. 14:46:15 Is the patient allergic to Iodine/contrast media? No. 14:46:19 Is patient on blood thinner?Yes 14:46:21 ACC The patient was administered the following blood thiners within the last 24 hours: ACCPlavix 14:46:25 Previous problem with sedation/anesthesia? No ? 14:46:25 Snore? Yes 14:46:27 Sleep apnea? No 14:46:29 Deviated septum? No 14:46:30 Opens mouth fully? Yes 14:46:31 Sticks out tongue? Yes 14:46:32 Airway obstruction? Yes ASTHMA, COPD 14:46:34 Dentures? No ? 14:46:35 Pre procedure: right dorsailis pedis pulse 1+ Palpable, but thready & weak; easily obliterated 14:46:48 IV patent on arrival in right antecubital with 0.9% NaCl at O. 14:47:20 0.9% NaCl 100 ml/hr I.V. was administered by Ilan Altamirano RN; Per physician; Verbal order read back and verified. 14:47: Lab Result : BUN 26 mg/dl 14:47: Lab Result : Creatinine 1.4 mg/dl :47: Lab Result : eGFR NONAFRICAN 52 ml/min 14:47: Lab Result : Hemoglobin 13.5 g/dl 14:47: Lab Result : Hematocrit 40.9 % 14:47:29 Oxygen 2 l/min etCO2 Nasal cannula was administered by Ilan Altamirano RN; for low 02 sats; Verbal order read back and verified. 14:47: Lab results completed and on chart. 14:47:31 Right groin area was prepped with chlora-prep and draped in sterile fashion 14:47:32 Alarms reviewed by R. N. 14:47:32 Sharps counted by scrub and verified by R.N. 14:47:33 Sharps counted by scrub and verified by R.N. 14:47:39 Patient diabetic? No. 14:47:40 Heparin Flush Bag (1000units/500ml NS) 2 bags added to field was administered by Ilan Altamirano RN; used for procedure; Verbal order read back and verified. 14:47:53 Lidocaine 2% 20ml vial added to field was administered by Ilan Altamirano RN; for local anesthetic; Verbal order read back and verified. 14:52:15 Patient Weight : 251.33 lbs 14:52:19 Patient Height : 68.9 inches 14:52:23 Arrival Date: 06/17/2020 12:00:00 AM 14:58:37 Use device set Femoral Dx 15:02:02 ACIST Syringe (02049) opened to sterile field. 15:02:02 Bag Decanter () opened to sterile field. 15:02:07 ACIST Hand Control (35049) opened to sterile field. 15:02:07 ACIST Manifold (90874) opened to sterile field. 15:02:08 Tegaderm 4 x 4 (1626W) opened to sterile field. 15:02:09 Medline Cath Pack ([id number]) opened to sterile field. 15:02:10 DIAGNOSTIC Multipack 5Fr catheter set (DY3899) opened to sterile field. 15:02:11 SHEATH 5FR Iona (PYT766) opened to sterile field. 15:02:12 EMERALD Guide Wire (759-709) opened to sterile field. 15:02:19 Zero performed for pressure channel P1 15::49 --------ALL STOP TIME OUT------ 15::49 Final Timeout: patient, procedure, and site verified with staff and physician. All members of the team are in agreement. 15:07:51 Right groin site verified by team. 15:07:53 Fire Safety Assessment: A--An alcohol-based skin anteseptic being used preoperatively., C--Open oxygen or nitrous oxide is being used., D--An ESU, laser, or fiber-optic light is being used. 15:07:58 Physical assessment completed. ASA score P 3 - A patient with severe systemic disease as per Drake Swanson MD. 15:08:01 3a) 45-59 Moderately reduced kidney function. 15:08:05 Maximum allowable contrast dose (3.7 X eGFR X 0.75)144 ml. 15:08:08 Sedation plan: IV Moderate Sedation Medication:Versed, Fentanyl 15:08:38 Versed 2 mg I.V. was administered by Ilan Altamirano RN; for sedation; Verbal order read back and verified. 15:08:47 Fentanyl 100 mcg I.V. was administered by Ilan Altamirano RN; for sedation; Verbal order read back and verified. 15:10:03 Procedure started. 15:10:15 Local anesthetic to right femoral artery with Lidocaine 2% by Drake Swanson MD.INITIAL ACCESS ONLY 15:12:31 Versed 2 mg I.V. was administered by Ilan Altamirano RN; for sedation; Verbal order read back and verified. 15:14:36 Fentanyl 100 mcg I.V. was administered by Ilan Altamirano RN; for sedation; Verbal order read back and verified. 15:14:45 A 5 Fr sheath was inserted into the Right Femoral artery 15:15:31 A MULTIPACK JL 4.0 5Fr catheter was advanced over the wire and used for Procedure. 15:17:17 LCA angiography performed. 15:17:19 Catheter removed. 15:17:26 A MULTIPACK 3DRC 5Fr catheter was advanced over the wire and used for Procedure. 15:20:15 LV gram done using HAYNES 15:20:19 Injector settings: Ml/sec: 10, Volume: 20, 15:20:21 LV hemodynamics recorded. 15:20:46 EF : 50 % 15:20:48 Catheter removed. 15:21:00 PROCEDING TO IFR 15:21:10 Winona OmniWire (54561) opened to sterile field. 15:21:14 INFLATOR Merit BasixCompak (YD4749) opened to sterile field. 15:22:18 A MULTIPACK JL 4.0 5Fr catheter was advanced over the wire and used for Procedure. 15:22:49 OMNI Pressure wire advanced. 15:23:23 Heparin Bolus 2,500 units I.V. was administered by Ilan Altamirano RN; for anticoagulation; Verbal order read back and verified. 15:25:17 Wire advanced across lesion. 15:25:50 LAD lesion measured at .94 with IFR 15:25:57 Wire removed. 15:25:59 Guide catheter removed. 15:26:32 EXOSEAL 5Fr (EX500) opened to sterile field. 15:26:54 Sheath removed intact; hemostasis achieved with Exoseal to the Right Femoral artery. 15:26:55 Procedure ended.(Physican Out) 15:27:17 Fluoroscopy time 02.20 minutes. 15:27:20 Fluoroscopy dose: 581 mGy 15:27:20 Flurop Dose total: 581 15:27:25 Dose Area Product 00166 mGy/cm. 15:27:29 Contrast amount:Isovue 300 60ml. 15:27:31 Maximum allowable dose exceeded? No. 15:27:31 Sharps counted by scrub and verified by R.N. 15:27:34 Post-op/insertion site Right Femoral artery dressed using a 4 x 4 and Tegaderm. 15:27:37 Post-procedure physical assessment completed. ASA score P 3 - A patient with severe systemic disease as per Drake Swanson MD. 15:27:39 Post procedure rhythm: sinus rhythm 15::42 Estimated blood loss: 5 ml 15:27:43 Post procedure instruction explained to patient.Patient verbalizes understanding. 15:27:43 Patient needs reinforcement of post procedure teaching. 15:28:07 Procedure type changed to Cath procedure, Diagnostic procedure, LHC, [facility] w/Coronaries, FFR/IVUS, FFR Initial, Sedation Charges, Moderate Sedation 10-24 minutes, PCI procedure, Hemochron ACT Test 15:28:48 Procedure and supply charges have been captured, reviewed, submitted and are correct. 15:28:51 Procedure Complication : No complications 15:28:54 [facility] Findings: mild to moderate CAD (<70%) 15:28:55 Operative report dictated upon procedure completion. 15:28:55 See physician's report for complete and final results. 15:29:43 ACT drawn and resulted at 126 seconds. (normal therapeutic range 180-240 seconds). 15:31:02 Vital chart was stopped 15:31:04 Report given to Med II. 15:31:07 Patient transfered to Med II with Bed. 15:31:09 Procedure ended. 15:31:09 Full Disclosure recording stopped 15:31:16 End room use (Document Last) Device Usage Item Name Manufacture Quantity Catalog Hospital Part Current Minimal L ot# / Number Charge Number Stock Stock Serial# Code ACIST Acist 1 09181 946941 646122 368358 20 Syringe Medical (03528) Systems Inc Bag Microtek 1 952716 19768 551095 5 Decanter Medical Inc. () ACIST Hand Acist 1 94686 180030 422474 109554 5 Control Medical (34173) Systems Inc ACIST Acist 1 79874 361612 798959 008398 5 Manifold Medical (84847) Systems Inc Tegaderm 4 3M 1 1626W 493233 945045 807252 5 x 4 (1626W) Medline Medline 1 [id number] 226045 21210 361742 5 Cath Pack ([id number]) DIAGNOSTIC Cardinal 1 RR6295 308397 78283 003112 30 Multipack Altura Medical 5Fr catheter set (DV7567) SHEATH 5FR Terumo 1 KVX490 992291 350944 150017 5 Iona (AEY024) EMERALD Cardinal 1 502-455 514203 982588 116291 5 Guide Wire Health (502455) MULTIPACK Cardinal 1 941084 5 JL 4.0 5Fr Health catheter MULTIPACK Cardinal 1 481354 5 3DRC 5Fr Health catheter Winona Winona 1 [id number] 871238 88467 9960 5 OmniWire (10519) INFLATOR Merit 1 BE2565 978923 532276 056755 15 Merit Medical BasixCompak (TL8462) EXOSEAL 5Fr Cardinal 1 EX500 012682 774865 972712 10 (EX500) Health Signature Audit [place] Stage Time Signature Unsigned Intra-Procedure 06/18/2020 Adelina Arabella 3:32:43 PM RT(R) Intra-Procedure 06/18/2020 Ilan 3:33:17 PM Evelia RN Intra-Procedure 06/18/2020 Drake Edwards 3:33:42 PM Sage COOPER Signatures Performing Physician : Signature : Drake Swanson MD Date : Time : Monitor : Adelina Arabella Signature : RT Date : Time : Nurse : Ilan Lorigan Signature : RN Date : Time : [facility] [address] [place] [address]
[~2020-06-16 10:03] MED LIST changes: +ALTACE10 MG; +FUROSEMIDE20 MG PO; +LEVOFLOXACIN500 MG PO; +PREDNISONE20 MG PO; +XOPENEX 1.1.25 MG/3 UPD; +XOPENEX HFA15 GM INH; +ZANAFLEX4 MG PO
[2020-06-16] MEDS ORDERED: VITAMIN D325 MC1 PO (10:11)
[2020-06-16] MEDS ORDERED: ZINC50 MG PO (10:11)
--- NOTE | 2020-06-16 10:23 | NUR ---
RADIOLOGY AND RT AT BEDSIDE FOR CXR AND ABGs.
[2020-06-16 10:33] LABS: BASOPHILS 0.1 % (0-2); EOSINOPHILS 0.2 % (0-7); HEMATOCRIT 38.5 % (42.0-54.0); HEMOGLOBIN 12.6 g/dL (13.5-17.5); IMMATURE GRANULOCYTES 0.1 % (0-5); LYMPHOCYTE ABS# 2.01 10x3/uL (1.32-3.57); LYMPHOCYTES 23.1 % (15-50); MCH 30.6 pg (26.0-34.0); MCHC 32.7 g/dL (31.0-37.0); MCV 93.4 fL (80.0-100.0); MEAN PLATELET VOLUME 10.3 fL (7.4-10.4); MONOCYTES 10.8 % (2-11); NEUTROPHIL ABS# 5.71 10x3/uL (1.78-5.38); NEUTROPHILS 65.7 % (40-80); RBC 4.12 10x6/uL (4.20-6.10); RDW 13.6 % (11.5-14.5); WBC 8.7 10x3/uL (4.8-10.8)
[2020-06-16 10:34] LABS: PLATELET COUNT 246 10x3/uL (130-400)
[2020-06-16 10:39] LABS: INR 1.11 (0.85-1.17); PROTIME 13.3 SECONDS (11.6-15.0)
[2020-06-16 10:40] LABS: APTT 28.3 SECONDS (22.8-39.4)
[2020-06-16 10:56] LABS: CALC OSMOLALITY 280 mosm/kg (275-300); CALCIUM 9.3 mg/dL (8.5-10.1); CARBON DIOXIDE 29.7 mmol/L (21.0-32.0); CHLORIDE - SERUM 101 mmol/L (98-107); CREATININE - SERUM 1.3 mg/dL (0.6-1.3); GLUCOSE 114 mg/dL (74-106); POTASSIUM - SERUM 3.8 mmol/L (3.5-5.1); SODIUM 139 mmol/L (136-145); UREA NITROGEN 19 mg/dL (7-18); eGFR NON AFRICAN AMERICAN 57 mL/min (90-120)
[2020-06-16 11:07] LABS: SARS-CoV-2 ANTIGEN NEGATIVE- SARS-COV-2 (NEGATIVE)
[2020-06-16 11:12] LABS: ALBUMIN 3.4 g/dL (3.4-5.0); ALKALINE PHOSPHATASE 69 U/L (30-120); ALT (SGPT) 22 U/L (10-68); BILIRUBIN - TOTAL 0.92 mg/dL (0.2-1.3); CKMB 1.1 U/L (0.0-3.6); CREATINE KINASE 87 UL (21-232); PRO BNP 2490 pg/mL (0-450); PROTEIN - SERUM 7.6 g/dL (6.4-8.2); TROPONIN-I 0.023 ng/mL (0.000-0.060)
--- NOTE | 2020-06-16 12:33 | NUR ---
ROUND PERFORMED, AND. SAFETY CHECKS DONE. AND PATIENT DENY NEEDS. URINAL AT BEDSIDE.
--- NOTE | 2020-06-16 12:34 | NUR ---
URINE SENT TO LAB PER PROTOCOL.
[2020-06-16 12:51] LABS: BILIRUBIN NEGATIVE (NEGATIVE); KETONE NEGATIVE (NEGATIVE); NITRITE NEGATIVE (NEGATIVE); UROBILINOGEN NORMAL mg/dL (< 2)
--- NOTE | 2020-06-16 12:52 | NUR ---
NURSING ROUND PERFORMED. PATIENT OOB TO CHAIR. TOLERATING WELL. AT BEDSIDE DENIES NEEDS.
--- NOTE | 2020-06-16 13:06 | NUR ---
REPORT CALLED TO CAROLINA HACKETT ON MED II.
--- NOTE | 2020-06-16 13:11 | NUR ---
RECEIVED REPORT FROM ELLIOT IN ED. PATIENT TO UNIT SOON.
--- NOTE | 2020-06-16 13:34 | NUR ---
AWAITING WEED CONTROLLER FOR TRANSPORT.
--- NOTE | 2020-06-16 14:01 | NUR ---
PATIENT ARRIVED TO UNIT VIA WHEELCHAIR FROM ED AND ADMITTED TO ROOM 2120 AT THIS TIME.
[2020-06-16] MEDS ORDERED: FUROSEMIDE20 MG (14:18)
[2020-06-17] VITALS: BP 182/79
[2020-06-17 04:00] VITALS: BP 178/86
[2020-06-17 06:29] LABS: BASOPHILS 0 % (0-2); EOSINOPHILS 0 % (0-7); HEMATOCRIT 37.3 % (42.0-54.0); HEMOGLOBIN 12.4 g/dL (13.5-17.5); IMMATURE GRANULOCYTES 0.1 % (0-5); LYMPHOCYTE ABS# 1.37 10x3/uL (1.32-3.57); LYMPHOCYTES 14.3 % (15-50); MCHC 33.2 g/dL (31.0-37.0); MEAN PLATELET VOLUME 10.3 fL (7.4-10.4); MONOCYTES 2.1 % (2-11); NEUTROPHIL ABS# 8.02 10x3/uL (1.78-5.38); NEUTROPHILS 83.5 % (40-80); PLATELET COUNT 250 10x3/uL (130-400); RBC 4.14 10x6/uL (4.20-6.10); RDW 13.4 % (11.5-14.5); WBC 9.6 10x3/uL (4.8-10.8)
[2020-06-17 06:38] LABS: MCV 90.1 fL (80.0-100.0)
[2020-06-17 06:44] LABS: ALBUMIN 3.4 g/dL (3.4-5.0); BILIRUBIN - TOTAL 0.52 mg/dL (0.2-1.3); CALCIUM 9.1 mg/dL (8.5-10.1); CARBON DIOXIDE 27.4 mmol/L (21.0-32.0); CREATININE - SERUM 1.2 mg/dL (0.6-1.3); POTASSIUM - SERUM 3.4 mmol/L (3.5-5.1); PROTEIN - SERUM 7.3 g/dL (6.4-8.2)
--- NOTE | 2020-06-17 07:00 | NUR ---
RECEIVED REPORT. ASSUMED CARE OF PATIENT. PATIENT LYING IN BED WITH EYES OPEN. RESP EVEN AND UNLABORED. COMPLAINS OF BEING TIRED, NOT MUCH SLEEP THROUGH THE NIGHT. WHITE BOARD UPDATED, BEDSIDE SHIFT REPORT COMPLETE. NO DISTRESS. CALL LIGHT WITHIN REACH.
--- NOTE | 2020-06-17 07:57 | HP ---
PATIENT: LUIS ALFREDO ESCOBAR MEDICAL RECORD: [id number] ACCOUNT: [id number] LOCATION:[address] : 41 ADMISSION DATE: 06/16/20 PCP: DEWAYNE GROSSMAN MD HISTORY AND PHYSICAL EXAMINATION ADMITTING PHYSICIAN: Dewayne Grossman MD CHIEF COMPLAINT: Shortness of breath for 3 days. HISTORY OF PRESENT ILLNESS: The patient is a 74-year-old male with history of RCA PTCA 2019. Echo showing EF of 55% with LVH and history of COPD. He noticed increasing shortness of breath over the last 3 days, having set up in a recliner the last 2 days to breathe. He has had cough in the mornings productive of stringy whitish phlegm. He denies fever. He apparently uses his Proventil updraft half dose twice daily because of hallucinations. He got progressively worse and came in. He denies fever, chills, nausea or vomiting. He is on home O2 at 2 liters[address] He said that Dr. Grossman told him not to wait until he got too short of breath to come to the ED. On last admission, he was also noted to have a cerebrovascular accident. PAST MEDICAL HISTORY: 1. Admitted 04/09/2020 for exacerbation of COPD and mild diastolic congestive heart failure. 2. COPD, on home oxygen. 3. Chronic low back pain plus multiple lumbar back surgeries, on chronic pain pump, hypertension, hyperlipidemia, obesity, GERD, RCA PTCA 2019, essential hypertension. SURGICAL HISTORY: He has had lumbar back surgery times 4, hand surgery times 1, RCA stent 2019, pain pump implanted. ALLERGIES: ZITHROMAX. SOCIAL HISTORY: , retired. Worked for the [employer]. Denies known exposure to asbestos. FAMILY HISTORY: Positive for heart disease in his parents. He is a former smoker, quit 20 years ago, smoked over a pack a day for 20+ years. Alcohol, none. HOME MEDICATIONS: Proventil updrafts q.12 hours; Xopenex 1.25 mg in 3 cc saline q.6 hours p.r.n.; Zanaflex 4 mg tablet every 6 hours p.r.n. muscle spasm; Plavix 75 mg daily; Lipitor 10 mg with evening meal; Coreg 6.25 mg b.i.d.; Altace 5 mg daily; Neurontin 300 mg p.o. q.i.d.; Lasix 20 mg p.o. q.a.m. and 10 mg at bedtime; KCl 10 mEq ER capsule 1 daily; zinc gluconate 50 mg p.o. daily; Mucinex 1200 mg p.o. b.i.d.; Protonix 40 mg a day; vitamin D 1000 units daily; morphine pain pump as per his direction by his pain physician in [place]. REVIEW OF SYSTEMS: GENERAL: He has been fatigued with increasing shortness of breath the last few days. Denies fever. HEENT: No recent new visual change, sinus congestion, sore throat. He does wear glasses. RESPIRATORY: He has had increasing dyspnea at rest and on exertion, producing clear sputum one to two tablespoons in the morning. Denies any hemoptysis or HISTORY AND PHYSICAL [id number] LUIS ALFREDO ESCOBAR off colored sputum. CARDIOVASCULAR: No exertional chest pain, claudication or edema. Has mild MENDOZA. GASTROINTESTINAL: No recent dyspepsia, swallowing difficulty, change in stools, or blood per rectum. GENITOURINARY: Nocturia once nightly. ENDOCRINE: Denies polyuria, polydipsia, heat or cold intolerance. NEUROLOGIC: No history of vascular headaches or seizures. Has remote history of asymptomatic stroke. MUSCULOSKELETAL: Has chronic lumbago for which he is on pain pump. No recent sciatica. INTEGUMENT: No rash or itching. PSYCHIATRIC: Admits to being anxious about his breathing, but not depressed. PHYSICAL EXAMINATION: VITAL SIGNS: Pulse 58, respirations 19, blood pressure 143/68 with 97% on room air pO2. GENERAL: The patient is alert and oriented and anxious. EYES: Clear. OROPHARYNX: Unremarkable. NECK: Supple. LUNGS: Distant breath sounds without wheeze or rales. HEART: Regular rate and rhythm. ABDOMEN: Obese, soft, nontender. EXTREMITIES: 1+ bipedal and pretibial edema of the knees bilaterally. There is no acrocyanosis. INTEGUMENT: Unremarkable. NEUROLOGIC: Oriented to person, place and time. Cranial nerves are intact. Gait was not tested. LABORATORY DATA: CBC shows a white count of 8700 with normal diff, H&H is 12.6 and 38.5. Chemistry shows BUN of 19, creatinine of 1.3, glucose 114 nonfasting. Lactic acid 1.0. Liver functions normal. ProBNP is 2490. Blood gas; pH 7.58, CO2 28.5, pO2 of 79 on 2 liters. INR is 1.1. Urine, unremarkable. SARS antigen is negative. DIAGNOSTIC DATA: Chest x-ray is unchanged from previous in March showing patchy left basilar airspace opacities similar to the last noted which may reflect scarring. ASSESSMENT: 1. Exacerbation of chronic obstructive pulmonary disease. 2. History of diastolic congestive heart failure. 3. History of coronary artery disease post-PTCA November 2019, hypertension, hyperlipidemia, obesity, gastroesophageal reflux disease, remote nicotine abuse, chronic pain, on pain pump. PLAN: We will hold antibiotics currently. We will place on Xopenex q.6 hours or q.4 hours p.r.n., budesonide, Brovana. I explained to him the reason for the mucus he was producing is from COPD. Placed on IV steroids. Further workup pending clinical course. TRANSINT:[id number] Voice Confirmation ID: [id number] DOCUMENT ID: [id number] HISTORY AND PHYSICAL [id number] LUIS ALFREDO ESCOBAR TIMOTHY MD at 0757 CC: [id number] DICTATION DATE: 06/16/20 1447 HAY FARMER: 06/16/20 1723 ADM IN [facility] [address] [place] [address]
[2020-06-17 08:44] VITALS: BP 113/59
[2020-06-17 11:27] VITALS: BP 160/83
--- NOTE | 2020-06-17 13:07 | NUR ---
SCDs REFUSED. EDUCATION PROVIDED FOR USE OF SCDs AND HOW THEY HELP PREVENT DVT FORMATION. PATIENT CONTINUES TO REFUSE SCD THERAPY.
[2020-06-17 13:42] VITALS: BMI 37.1
[2020-06-17 16:00] VITALS: BP 176/78
--- NOTE | 2020-06-17 17:31 | NUR ---
SITTING TO SIDE OF BED CONSUMING PM MEAL. NO DISTRESS. CALL LIGHT WITHIN REACH. DENIES ANY OTHER NEEDS AT THIS TIME.
[2020-06-17 20:00] VITALS: BP 205/98
[2020-06-18 00:01] VITALS: BP 192/97
--- NOTE | 2020-06-18 01:28 | NUR ---
I have reviewed this patient and I concur with the Shift Assessment completed by the Licensed Practical Nurse today this shift.
--- NOTE | 2020-06-18 03:12 | NUR ---
RESTING WITH EYES CLOSED, NO S/S DISTRESS NOTED.
[2020-06-18 04:30] VITALS: BP 183/95
[2020-06-18 06:29] LABS: BASOPHILS 0 % (0-2); EOSINOPHILS 0.1 % (0-7); HEMATOCRIT 40.9 % (42.0-54.0); HEMOGLOBIN 13.5 g/dL (13.5-17.5); IMMATURE GRANULOCYTES 0.2 % (0-5); LYMPHOCYTE ABS# 1.45 10x3/uL (1.32-3.57); LYMPHOCYTES 8.5 % (15-50); MCH 30.1 pg (26.0-34.0); MCV 91.3 fL (80.0-100.0); MEAN PLATELET VOLUME 10.5 fL (7.4-10.4); MONOCYTES 6.9 % (2-11); NEUTROPHIL ABS# 14.32 10x3/uL (1.78-5.38); NEUTROPHILS 84.3 % (40-80); PLATELET COUNT 299 10x3/uL (130-400); RBC 4.48 10x6/uL (4.20-6.10); RDW 13.6 % (11.5-14.5)
[2020-06-18 06:32] LABS: ANION GAP 14.2 mmol/L (8-16); CALCIUM 9.4 mg/dL (8.5-10.1); CARBON DIOXIDE 29.1 mmol/L (21.0-32.0); CREATININE - SERUM 1.4 mg/dL (0.6-1.3); POTASSIUM - SERUM 3.3 mmol/L (3.5-5.1)
--- NOTE | 2020-06-18 07:48 | NUR ---
PATIENT BP 197/89. DR. GROSSMAN AWARE OF PATIENT BP RUNNING HIGH OVERNIGHT. STATED HE WILL ORDER MEDICATION FOR BP. PATIENT SOB O2 SAT 97% ON 2L. DR. GROSSMAN ORDERING ULTRASOUND. WILL CONTINUE POC AND SAFETY PRECAUTIONS. CALL LIGHT IN REACH.
[2020-06-18 08:10] VITALS: BP 197/89
[2020-06-18 08:56] VITALS: Ht 175.3 cm; Wt 112.5 kg
[2020-06-18 10:15] LABS: CHOL - HDL RATIO 2.1 ratio (2.3-4.9); LDL-HDL RATIO 0.9 ratio (1.5-3.5)
--- NOTE | 2020-06-18 10:15 | NUR ---
PATIENT BP RECHECKED 200/94, MANUAL BP. CALLED DR. RIVER HE ORDERED CLONIDINE. GIVEN AND WILL RECHECK BP. PATIENT FACE IS FLUSHED AND STILL COMPLAINING OF SOB.
[2020-06-18 12:00] VITALS: BP 169/82
--- NOTE | 2020-06-18 12:00 | NUR ---
VS RECHECKED. BP 169/82. PRE OP PATIENT FOR TOBACCO WAREHOUSE AGENT.
--- NOTE | 2020-06-18 14:37 | NUR ---
DOWN TO FLOCCULATOR OPERATOR
[2020-06-18 16:00] VITALS: BP 128/70
[2020-06-18 20:00] VITALS: BP 145/78
[2020-06-19] VITALS (7 sets, daily range): BP systolic 124–163; BP diastolic 68–93
[2020-06-19 05:06] LABS: BASOPHILS 0 % (0-2); EOSINOPHILS 0 % (0-7); HEMATOCRIT 38.2 % (42.0-54.0); HEMOGLOBIN 12.5 g/dL (13.5-17.5); IMMATURE GRANULOCYTES 0.3 % (0-5); LYMPHOCYTE ABS# 1.55 10x3/uL (1.32-3.57); LYMPHOCYTES 13.2 % (15-50); MCH 30.1 pg (26.0-34.0); MCHC 32.7 g/dL (31.0-37.0); MEAN PLATELET VOLUME 10.3 fL (7.4-10.4); MONOCYTES 10.4 % (2-11); NEUTROPHIL ABS# 8.97 10x3/uL (1.78-5.38); NEUTROPHILS 76.1 % (40-80); RBC 4.15 10x6/uL (4.20-6.10); RDW 13.8 % (11.5-14.5)
--- NOTE | 2020-06-19 05:09 | NUR ---
I have reviewed this patient and I concur with the Shift Assessment completed by the Licensed Practical Nurse today this shift.
[2020-06-19 05:25] LABS: PLATELET COUNT 232 10x3/uL (130-400); WBC 11.8 10x3/uL (4.8-10.8)
[2020-06-19 05:37] LABS: ANION GAP 12.7 mmol/L (8-16); CALCIUM 8.9 mg/dL (8.5-10.1); CARBON DIOXIDE 28.9 mmol/L (21.0-32.0); CREATININE - SERUM 1.4 mg/dL (0.6-1.3); POTASSIUM - SERUM 3.6 mmol/L (3.5-5.1)
--- NOTE | 2020-06-19 08:06 | EC ---
PATIENT:LUIS ALFREDO ESCOBAR DATE OF SERVICE: 06/17/20 SEX: M MEDICAL RECORD: [id number] DATE OF : 41 LOCATION:D.M2 D.212 AGE OF PATIENT: 74 ADMISSION DATE: 06/17/20 REFERRING PHYSICIAN: INTERPRETING PHYSICIAN: TRAY TREVINO MD ECHOCARDIOGRAM REPORT ECHO CHARGES 5 ECHO LIMITED Date: 06/18/20 CLINICAL DIAGNOSIS: MENDOZA, CMP ECHOCARDIOGRAPHIC MEASUREMENTS (adult normal given) AC root (d.<3.7cm) 0 cm LV Septum d (<1.2 cm> 0 cm Valve Excursion 0 cm LV Septum (systole) 0 cm Left Atria (s.<4.0cm> 0 cm LVPW d(<1.2cm) 0 cm RV (d.<2.3cm) 0 cm LVPW (sytole) 0 cm LV diastole(<5.6CM) 0 cm MV E-F(>70mm/sec) 0 cm LV systole 0 cm LVOT Diameter 00 cm MV exc.(>10mm) 0 cm Est.ejection fraction (50-75%) % DOPPLER: LVIT cm/sec A 0 cm/sec E 0 cm/sec LA 0 cm/sec RVSP 21 mmHg LVOT 0 cm/sec AOP1/2T m/s Asc. Ao 0 cm/sec RVOT 0 cm/sec RA 0 cm/sec PA 0 cm/sec AV Gradient Peak 0 mmHg AV Mean 0 mmHg AV Area 0 cm MV Gradient Peak 0 mmHg MV Mean 0 mmHg MV Area 0 cm COMMENTS: Assistant Guest Services Manager: Demetris [facility] Sr Account Executive: 3 Dr. Salazar TAPE# Pericardial Effusion Y DATE OF SERVICE: 2D and color flow only. Limited study. Grossly LVH appears present. LV internal dimensions are normal. Wall motion normal. EF greater than or equal to 55%. Aortic valve appears tricuspid with no significant AI. Left atrium grossly appears normal. Mitral valve shows mitral annular calcifications and trace MR. Right-sided chambers are grossly normal. Trace TR. TRANSINT:[id number] Voice Confirmation ID: [id number] DOCUMENT ID: [id number] ECHOCARDIOGRAM REPORT [id number] LUIS ALFREDO ESCOBAR TRAY TREVINO MD at 0806 CC: [id number] DICTATION DATE: 06/18/20 1615 SEGMENT BLOCK LAYER: 06/18/201958 ADM IN [facility] [address] [id number]
--- NOTE | 2020-06-19 08:06 | OP ---
PATIENT NAME: LUIS ALFREDO ESCOBAR MEDICAL RECORD: [id number] :41 LOCATION:D. D.2120 ADMISSION DATE:06/17/20 SURGEON: TRAY TREVINO MD DATE OF OPERATION: 06/18/2020 PROCEDURE: Left heart catheterization, selective coronary angiography, plus iFR wire to the LAD, right femoral artery approach. CATHETERS: A 5-Urdu sheath, 5/4 left and right Germaine, 5/4 pig. The procedure was well tolerated. The patient was returned to the nguyen. Sheath removed. FINDINGS: Left ventriculography in 30-degree HAYNES view: Normal wall motion, normal systolic function. CORONARY ANATOMY: LEFT MAIN: Left main is free of disease. LAD: The LAD has a questionable stenosis in its proximal third at the takeoff of the band, the stent itself and the LAD appears widely patent. CIRCUMFLEX: Small vessel, free of disease. RIGHT CORONARY ARTERY: Previously placed stents are widely patent. IFR wire to the questionable lesion in the LAD confirmed nonsignificant with iFR wire greater than 0.9. IMPRESSION: Normal left ventricular systolic function, normal coronary anatomy. TRANSINT:[id number] Voice Confirmation ID: [id number] DOCUMENT ID: [id number] TRAY TREVINO MD at 0806 CC: [id number] DICTATION DATE: 06/18/20 1542 SPORTS MEDICINE COORDINATOR: 06/18/202117 ADM IN [facility] [address] [id number]
--- NOTE | 2020-06-19 10:15 | NUR ---
PATIENT AAOX4, RESP EVEN AND NON LABORED, NO S/S OF DISTRESS, MEDICATIONS ADMINISTERED WITH NO COMPLICATIONS, NO FURTHER NEEDS AT THIS TIME, CLIR, BLP
--- NOTE | 2020-06-19 13:30 | NUR ---
I have reviewed this patient and I concur with the Shift Assessment completed by the Licensed Practical Nurse today this shift.
[2020-06-20 05:09] VITALS: BP 123/65
[2020-06-20 05:46] LABS: BASOPHILS 0 % (0-2); EOSINOPHILS 0 % (0-7); HEMATOCRIT 40.4 % (42.0-54.0); HEMOGLOBIN 13.1 g/dL (13.5-17.5); IMMATURE GRANULOCYTES 0.4 % (0-5); LYMPHOCYTE ABS# 1.36 10x3/uL (1.32-3.57); MCH 30.1 pg (26.0-34.0); MCHC 32.4 g/dL (31.0-37.0); MCV 92.9 fL (80.0-100.0); MEAN PLATELET VOLUME 10.5 fL (7.4-10.4); MONOCYTES 7.2 % (2-11); NEUTROPHILS 80.4 % (40-80); PLATELET COUNT 262 10x3/uL (130-400); RBC 4.35 10x6/uL (4.20-6.10); RDW 13.6 % (11.5-14.5); WBC 11.3 10x3/uL (4.8-10.8)
[2020-06-20 06:21] LABS: ANION GAP 12.2 mmol/L (8-16); CALCIUM 8.8 mg/dL (8.5-10.1); CARBON DIOXIDE 31.4 mmol/L (21.0-32.0); CREATININE - SERUM 1.3 mg/dL (0.6-1.3); POTASSIUM - SERUM 3.6 mmol/L (3.5-5.1)
--- NOTE | 2020-06-20 08:15 | NUR ---
PATIENT SITTING HIGH FOWLERS AAOX4, RESP EVEN AND NON LABORED, NO S/ SOF DISTRESS, MEDICATIONS ADMINISTERED WITH NO COMPLICATIONS, NO FURTHER NEEDS AT THIS TIME, CLIR, BLP
[2020-06-20 08:17] VITALS: BP 173/75
[2020-06-20 11:36] VITALS: BP 170/66
--- NOTE | 2020-06-20 12:46 | NUR ---
Nutrition Follow-up: Good/fair PO intake. S/p cath on 06/18. Diet: Cardiac Wt: 248# (06/20); 251.6# (06/16) Labs noted: Glu 131 Meds noted: vit D, Protonix, Lasix, Micro K, Solumedrol -Encourage PO intake and honor food preferences within diet restrictions. -Monitor wt. -RD follow-up: 06/25
[2020-06-20 15:58] VITALS: BP 140/64
--- NOTE | 2020-06-20 16:32 | NUR ---
I have reviewed this patient and I concur with the Shift Assessment completed by the Licensed Practical Nurse today this shift.
[2020-06-20 20:40] VITALS: BP 159/62
[2020-06-20 23:43] VITALS: BP 178/73
[2020-06-21 05:18] VITALS: BP 177/75
[2020-06-21 06:14] LABS: ALBUMIN 3.3 g/dL (3.4-5.0); ANION GAP 11.5 mmol/L (8-16); BILIRUBIN - TOTAL 0.48 mg/dL (0.2-1.3); CALCIUM 9.3 mg/dL (8.5-10.1); CARBON DIOXIDE 31.5 mmol/L (21.0-32.0); CREATININE - SERUM 1.3 mg/dL (0.6-1.3); PROTEIN - SERUM 6.8 g/dL (6.4-8.2)
--- NOTE | 2020-06-21 08:00 | NUR ---
PT RECEIVED AWAKE SITTING UP IN CHAIR. OXYGEN AT 3LITERS. POSSIBLE DC TODAY.
[2020-06-21] MEDS ORDERED: IPRAT-ALBUT 0.5-3 ML UPD (08:05)
[2020-06-21] MEDS ORDERED: PERFOROMIS20 MCG/21 INH (08:05)
[2020-06-21] MEDS ORDERED: LOPRESSOR25 MG PO (08:06)
[2020-06-21] MEDS ORDERED: VALIUM5 MG PO (08:08)
[2020-06-21] MEDS ORDERED: SINGULAIR10 MG PO (08:09)
[2020-06-21] MEDS ORDERED: PULMICORT0.5 MG/21 INH (08:09)
[2020-06-21] MEDS ORDERED: PREDNISONE20 MG PO (08:12)
[2020-06-21] MEDS ORDERED: FUROSEMIDE20 MG PO (08:15)
[2020-06-21 08:51] VITALS: BP 176/87
--- NOTE | 2020-06-21 10:29 | MORECARE ---
CASE MANAGEMENT DISCHARGE SUMMARY PATIENT: LUIS ALFREDO ESCOBAR UNIT: [id number] ADM DATE: 06/17/20 AGE: 74 : 43 SEX: M ROOM/BED: D.212 AUTHOR: HIMANSHU CEE PHYSICIAN: REFERRING PHYSICIAN: DAHIANA GROSSMAN MD DATE OF SERVICE: 06/21/20 Case Management Discharge Planning Summary DCP REVIEW SUMMARY ANTICIPATED D/C DATE: EXPECTED LOS : CASE STATUS: DCP Initiated INITIAL REVIEW: 06/16/2020 INITIAL REVIEWER: Mehreen Au FINAL DISCHARGE DISPOSITION: 01 : Home or Self Care (Routine Discharge) FINAL REVIEWER: Mehreen Au FINAL REVIEW DATE: 06/21/2020 DCP Focus Questions & Answers DCP Screen QUESTION: ANSWER High Risk Factors: : Hosp related to CHF, COPD, DM, End Stage Ds, CVA, CA DCP Evaluation QUESTION: ANSWER Patient's ability to cope with chronic illness : d. No chronic illness Would patient like to participate in any Care Coordination programs (if applicable): : Not applicable Mental health screen: : No mental health history DCP Re-evaluation QUESTION: ANSWER Would patient like to participate in any Care Coordination programs (if applicable): : Not applicable PATIENT: LUIS ALFREDO ESCOBAR ENCOUNTER: [id number] MEDICAL RECORD#: [id number] ADMISSION DATE: 06/17/2020 DISCHARGE DATE: ATTENDING MD: DAHIANA SILVERIO : AGE: 74 MARITAL STATUS: M DC PLAN ID: [id number] FACILITY: [facility] PRINTED ON: 06/21/20 10:29 CT All edits/amendments must be made on the electronic document DICTATION DATE: 06/21/20 1029 KNUCKLER: DM 06/21/20 1029 RPT#: [id number] DC DATE: STATUS: ADM IN [facility] [address] [place] [address] END OF REPORT
--- NOTE | 2020-06-21 11:05 | MORECARE ---
CASE MANAGEMENT DISCHARGE SUMMARY PATIENT: LUIS ALFREDO ESCOBAR UNIT: [id number] ADM DATE: 06/17/20 AGE: 74 : 43 SEX: M ROOM/BED: D.212 AUTHOR: HIMANSHU CEE PHYSICIAN: REFERRING PHYSICIAN: DAHIANA GROSSMAN MD DATE OF SERVICE: 06/21/20 Case Management Discharge Planning Summary COMMENTS ENTERED DATE: 06/21/20 10:58 CT COMMENT TYPE: Discharge Planning REVIEWER: Mehreen Au CM spoke with patient to complete initial dc planning assessment. CM educated patient on the CM role and verbal consent given by patient to complete assessment. Patient lives at home with spouse. Patient is independent. At discharge patient plans to return home and feels this is a safe discharge. CM discussed availability of home health, rehab services, and medical equipment. Patient will have family to transport home. Patient does have home 02 and portable along with nebulizer. Patient denied known discharge needs at this time. D/C IMM signed. CM will continue to follow and will assist as needed with dc plans/needs. DCP REVIEW SUMMARY ANTICIPATED D/C DATE: EXPECTED LOS : CASE STATUS: DCP Initiated INITIAL REVIEW: 06/16/2020 INITIAL REVIEWER: Mehreen Au FINAL DISCHARGE DISPOSITION: 01 : Home or Self Care (Routine Discharge) FINAL REVIEWER: Mehreen Au FINAL REVIEW DATE: 06/21/2020 DCP Focus Questions & Answers DCP Screen QUESTION: ANSWER High Risk Factors: : Hosp related to CHF, COPD, DM, End Stage Ds, CVA, CA DCP Evaluation QUESTION: ANSWER Patient's ability to cope with chronic illness : a. Adequate (0-3 ED visits in 6 mos., adequate financial resources, attends scheduled appts.) Patient's current cognitive status: : *Oriented to person, place, situation, time and present Patient gives permission to discuss discharge plans with: (name, relationship and number) : JAVED ESCOBAR - SPOUSE - [phone] Functional screen assessment: : No issues identified Family / Caregiver's ability to cope with chronic illness: : a. Adequate (ability to meet patient's medical needs, ensures patient attends medical appts.) Physical Status: : Independent with ADL's Living Arrangements: : Home with Spouse/Significant Other Partial Dependence, assistance required for: : Ambulation / Mobility Results of this evaluation have been discussed with: : Patient Patient with capacity for self-care or can be cared for in same environment as prior to hospitalization? : Yes Baseline cognitive status: : *Oriented to person, place, situation, time and present Medication Management: : Patient states can read and understand medication labels Pharmacy name(s): : [facility] Does Patient have transportation to get home and to follow-up medical appointments when discharged from the hospital? : Yes Would patient like to participate in any Care Coordination programs (if applicable): : Not applicable Does the patient have electricity at home? : Yes Does the patient have running water in their house? : Yes Equipment in use: : Nebulizer Equipment in use: : Home Oxygen with Nasal Cannula Equipment in use: : Cane - Single Leg Mental health screen: : No mental health history DCP Re-evaluation QUESTION: ANSWER Would patient like to participate in any Care Coordination programs (if applicable): : Not applicable PATIENT: LUIS ALFREDO ESCOBAR ENCOUNTER: [id number] MEDICAL RECORD#: [id number] ADMISSION DATE: 06/17/2020 DISCHARGE DATE: ATTENDING MD: DAHIANA SILVERIO : AGE: 74 MARITAL STATUS: M DC PLAN ID: [id number] FACILITY: [facility] PRINTED ON: 06/21/20 11:05 CT All edits/amendments must be made on the electronic document DICTATION DATE: 06/21/201104 COOK SHORT ORDER: MINOO 06/21/20 110 RPT#: [id number] DC DATE: STATUS: ADM IN [facility] [address] [place] [address] END OF REPORT
--- NOTE | 2020-06-21 11:12 | NUR ---
PT'S DISCHARGE INSTRUCTIONS REVIEWED AND SIGNED. IV OUT AND TELEMETRY REMOVED. TO TRANSPORT AND PORTABLE OXYGEN IN CAR. VIA WHEELCHAIR TO ER.
--- NOTE | 2020-06-22 17:38 | MORECARE ---
CASE MANAGEMENT DISCHARGE SUMMARY PATIENT: LUIS ALFREDO ESCOBAR UNIT: [id number] ADM DATE: 06/17/20 AGE: 74 : 43 SEX: M ROOM/BED: D.2122 AUTHOR: HIMANSHU CEE PHYSICIAN: REFERRING PHYSICIAN: DAHIANA GROSSMAN MD DATE OF SERVICE: 06/22/20 Case Management Discharge Planning Summary COMMENTS ENTERED DATE: 06/21/20 10:58 CT COMMENT TYPE: Discharge Planning REVIEWER: Mehreen Au CM spoke with patient to complete initial dc planning assessment. CM educated patient on the CM role and verbal consent given by patient to complete assessment. Patient lives at home with spouse. Patient is independent. At discharge patient plans to return home and feels this is a safe discharge. CM discussed availability of home health, rehab services, and medical equipment. Patient will have family to transport home. Patient does have home 02 and portable along with nebulizer. Patient denied known discharge needs at this time. D/C IMM signed. CM will continue to follow and will assist as needed with dc plans/needs. DCP REVIEW SUMMARY ANTICIPATED D/C DATE: EXPECTED LOS : CASE STATUS: DCP Initiated INITIAL REVIEW: 06/16/2020 INITIAL REVIEWER: Mehreen Au FINAL DISCHARGE DISPOSITION: 01 : Home or Self Care (Routine Discharge) FINAL REVIEWER: Mehreen Au FINAL REVIEW DATE: 06/21/2020 DCP Focus Questions & Answers DCP Screen QUESTION: ANSWER High Risk Factors: : Hosp related to CHF, COPD, DM, End Stage Ds, CVA, CA DCP Evaluation QUESTION: ANSWER Patient gives permission to discuss discharge plans with: (name, relationship and number) : JAVED ESCOBAR - SPOUSE - [phone] Patient's current cognitive status: : *Oriented to person, place, situation, time and present Patient's ability to cope with chronic illness : a. Adequate (0-3 ED visits in 6 mos., adequate financial resources, attends scheduled appts.) Physical Status: : Independent with ADL's Family / Caregiver's ability to cope with chronic illness: : a. Adequate (ability to meet patient's medical needs, ensures patient attends medical appts.) Functional screen assessment: : No issues identified Partial Dependence, assistance required for: : Ambulation / Mobility Living Arrangements: : Home with Spouse/Significant Other Baseline cognitive status: : *Oriented to person, place, situation, time and present Patient with capacity for self-care or can be cared for in same environment as prior to hospitalization? : Yes Results of this evaluation have been discussed with: : Patient Medication Management: : Patient states can read and understand medication labels Pharm[facility] name(s): : [facility] Does Patient have transportation to get home and to follow-up medical appointments when discharged from the hospital? : Yes Would patient like to participate in any Care Coordination programs (if applicable): : Not applicable Does the patient have electricity at home? : Yes Does the patient have running water in their house? : Yes Equipment in use: : Cane - Single Leg Equipment in use: : Home Oxygen with Nasal Cannula Equipment in use: : Nebulizer Mental health screen: : No mental health history DCP Re-evaluation QUESTION: ANSWER Would patient like to participate in any Care Coordination programs (if applicable): : Not applicable PATIENT: LUIS ALFREDO ESCOBAR ENCOUNTER: [id number] MEDICAL RECORD#: [id number] ADMISSION DATE: 06/17/2020 DISCHARGE DATE: 06/21/2020 ATTENDING MD: DAHIANA SILVERIO : AGE: 74 MARITAL STATUS: M DC PLAN ID: [id number] FACILITY: [facility] PRINTED ON: 06/22/20 17:38 CT All edits/amendments must be made on the electronic document DICTATION DATE: 06/22/201737 FEED ELEVATOR WORKER: MINOO 06/22/201737 RPT#: [id number] DC DATE:06/21/20 STATUS: DIS IN [facility] [address] [place] [address] END OF REPORT
[2020-06-23 18:07] LABS: IMMUNOGLOBULIN E 61 IU/mL (6-495)
== END 2020-06-21 11:13 | disposition home or self-care (01) | DRG 286 ==
LOC: D.ER 10:03 → OBSVTIME 12:00 → D.M2 12:00
PROVIDERS: Family Medicine; Internal Medicine Interventional Cardiology; Internal Medicine Pulmonary Disease; ADMIT Family Medicine; ATTEND Family Medicine
PROC: B2151ZZ Fluoroscopy of Left Heart using Low Osmolar Contrast (ICD-10-PCS; 2020-06-18)
PROC: 4A023N7 Measurement of Cardiac Sampling and Pressure, Left Heart, Percutaneous Approach (ICD-10-PCS; 2020-06-18)
PROC: B241ZZ3 Ultrasonography of Multiple Coronary Arteries, Intravascular (ICD-10-PCS; 2020-06-18)
PROC: B2111ZZ Fluoroscopy of Multiple Coronary Arteries using Low Osmolar Contrast (ICD-10-PCS; principal; 2020-06-18 14:24)
DX: I13.0 Hypertensive heart and chronic kidney disease with heart failure and stage 1 through stage 4 chronic kidney disease, or unspecified chronic kidney disease (principal); I50.33 Acute on chronic diastolic (congestive) heart failure; J44.1 Chronic obstructive pulmonary disease with (acute) exacerbation; I25.10 Atherosclerotic heart disease of native coronary artery without angina pectoris; E78.5 Hyperlipidemia, unspecified; K21.9 Gastro-esophageal reflux disease without esophagitis; G89.29 Other chronic pain; E66.9 Obesity, unspecified; Z68.37 Body mass index [BMI] 37.0-37.9, adult; Z87.891 Personal history of nicotine dependence; Z86.73 Personal history of transient ischemic attack (TIA), and cerebral infarction without residual deficits; N18.9 Chronic kidney disease, unspecified; E87.6 Hypokalemia

== ENCOUNTER → 2020-07-16 12:32 | Outpatient (CLI) | payer MEDICARE ==
[2020-06-18 08:56] VITALS: BMI 37.1
[~2020-07-16 12:32] MED LIST changes: +FUROSEMIDE20 MG; +IPRAT-ALBUT 0.5-3 ML UPD; +LOPRESSOR25 MG PO; +PERFOROMIS20 MCG/21 INH; +PULMICORT0.5 MG/21 INH; +SINGULAIR10 MG PO; +VALIUM5 MG PO; +VITAMIN D325 MC1 PO; +ZINC50 MG PO
== END | disposition home or self-care (01) ==
LOC: D.LAB 12:32
PROVIDERS: ATTEND Internal Medicine Pulmonary Disease
DX: Z11.52 Encounter for screening for COVID-19 (principal)

== ENCOUNTER → 2020-07-23 12:58 | Outpatient (CLI) | payer MEDICARE ==
[2020-06-18 08:56] VITALS: BMI 37.1
== END | disposition home or self-care (01) ==
LOC: D.RT 12:58
PROVIDERS: ATTEND Internal Medicine Pulmonary Disease
DX: J44.9 Chronic obstructive pulmonary disease, unspecified (principal)

== ENCOUNTER 2020-08-06 10:19 | Emergency (ER) | payer MEDICARE ==
[~2020-08-06] VITALS: Ht 175.3 cm; Wt 113.4 kg
[2020-08-06 10:24] VITALS: BP 99/63; Ht 175.3 cm; Wt 113.4 kg
[2020-08-06 11:13] LABS: BASOPHILS 0.3 % (0-2); EOSINOPHILS 0.3 % (0-7); HEMATOCRIT 38.4 % (42.0-54.0); HEMOGLOBIN 12.6 g/dL (13.5-17.5); LYMPHOCYTES 22.3 % (15-50); MCH 30.2 pg (26.0-34.0); MCHC 32.9 g/dL (31.0-37.0); MCV 91.8 fL (80.0-100.0); MEAN PLATELET VOLUME 8.4 fL (7.4-10.4); MONOCYTES 10.1 % (2-11); RBC 4.18 10x6/uL (4.20-6.10); RDW 14.1 % (11.5-14.5); WBC 6.9 10x3/uL (4.8-10.8)
[2020-08-06 11:21] LABS: ANION GAP 6.8 mmol/L (8-16); CALCIUM 9.1 mg/dL (8.5-10.1); CARBON DIOXIDE 35.6 mmol/L (21.0-32.0); CREATININE - SERUM 1.2 mg/dL (0.6-1.3); POTASSIUM - SERUM 3.4 mmol/L (3.5-5.1)
[2020-08-06 11:24] LABS: APTT 29.6 SECONDS (22.8-39.4); INR 1.13 (0.85-1.17); PROTIME 13.5 SECONDS (11.6-15.0)
[2020-08-06 11:25] LABS: D-DIMER-QUANTITATIVE 0.37 ug/mLFEU (0.20-0.54)
[2020-08-06 11:31] LABS: PLATELET COUNT 166 10x3/uL (130-400)
[2020-08-06 11:34] LABS: ALBUMIN 3.4 g/dL (3.4-5.0); BILIRUBIN - TOTAL 0.74 mg/dL (0.2-1.3); PROTEIN - SERUM 7.3 g/dL (6.4-8.2)
[2020-08-06] MEDS ORDERED: MEDROL DOSE PACK4 MG PO (14:54)
== END 2020-08-06 15:48 | disposition home or self-care (01) ==
LOC: D.ER 10:19
PROVIDERS: Emergency Medicine
DX: J44.1 Chronic obstructive pulmonary disease with (acute) exacerbation (principal); G62.9 Polyneuropathy, unspecified; I10 Essential (primary) hypertension; K21.9 Gastro-esophageal reflux disease without esophagitis; Z99.81 Dependence on supplemental oxygen